=== PATIENT | male | born 1945 | race Caucasian/White ===

== ENCOUNTER 2017-08-20 12:40 | Inpatient (IN) ==
[2017-08-20] MEDS: SALINE FLUSH 10ml SYRINGE IVF PRN (12:55)
--- NOTE | 2017-08-20 13:08 | Emergency Department Report ---
SOB HPI - General Chief Complaint: Shortness of Breath/Dyspnea Stated Complaint: soa Time Seen by Provider: 08/20/17 12:50 Source: patient, RN notes reviewed, old records reviewed Mode of arrival: ambulatory Limitations: no limitations - History of Present Illness 72yo man presents to the ER with dyspnea at rest. Pt has had progressive dyspnea over the last week; today, he noted that he was having dyspnea while reading out loud at [employer]. Pt has no known cardiac hx, but has been diabetic x40+ years. Pt has a h/o HTN (untreated due to syncopal events with concurrent hypoglycemia/hypotension), but no HL. Pt has significant peripheral neuropathy, but no current/former AUTUMN. Pt has had some rhinitis and possibly a recent cold. MD Complaint: shortness of breath Onset (ago): day(s) (7) Context: recent illness Severity: severe Consistency/Duration: constant Relieving factors: oxygen Exacerbating factors: lying flat, exertion, movement Known history of: diabetes Treatment prior to arrival: none - Related Data Home Medications Medication Instructions Recorded Confirmed Aspirin [Ecotrin] 81 mg PO DAILY 08/20/17 08/20/17 Cyanocobalamin (Vitamin B-12) 1 tab PO DAILY 08/20/17 08/20/17 [Vitamin B-12] Ergocalciferol (Vitamin D2) 1 cap PO WEEKLY 08/20/17 08/20/17 [Vitamin D2] Finasteride [Proscar] 5 mg PO DAILY 08/20/17 08/20/17 Insulin Lispro [Humalog] 1 dose SQ DAILY 08/20/17 08/20/17 Allergies Allergy/AdvReac Type Severity Reaction Status Date / Time No Known Allergies Allergy Verified 08/20/17 13:12 Review of Systems All systems: reviewed and negative except as stated Cardiovascular: Reports: as per HPI, dyspnea on exertion. Denies: chest pain, palpitations, orthopnea, edema, syncope, paroxysmal nocturnal dyspnea Respiratory: Reports: as per HPI, dyspnea. Denies: cough, wheezes, hemoptysis, stridor [facility] Patient Stated Medical History Cataracts Yes Hearing Loss Yes Other Cardiology Yes: "AUTONOMIC NEUROPATHY" Diabetes Mellitus Type 1 Yes Hx Benign Prostatic Yes Hyperplasia Other Musculoskeletal Yes: NEURAL STIMULATOR Medical History Updates: HTN. DM. Peripheral neuropathy - Social History Smoking status: Unknown if ever smoked Physical Exam - Limitations Limitations: no limitations - General General appearance: alert, in no apparent distress, obese (Morbid) - Normal Exams: Head:: Normocephalic without trauma Eyes:: Pupils are PERRLA w/ EOMI, No scleral icterus, irritation, or foreign bodies noted ENMT:: No facial trauma, nasal exudates, pharyngeal erythema, or exudates are noted Neck:: Full range of motion, without adenopathy Lymphatic:: No lymphadenopathy Musculoskeletal:: No tenderness, or deformity noted Neurological:: Patient is alert, and oriented Psychiatric:: Patient exhibits, appropriate attention - Chest Chest inspection: Present: normal inspection, symmetric chest wall rise. Absent : tenderness, rash - Respiratory Respiratory exam: Present: normal lung sounds bilaterally. Absent: respiratory distress, wheezes, stridor, prolonged expiratory phase, crackles - Cardiovascular Cardiovascular exam: Present: regular rate, normal rhythm, normal heart sounds. Absent: rubs, gallop, clicks - Abdominal Exam Abdominal exam: Present: soft, distention, normal bowel sounds, pulsatile mass. Absent: tenderness, guarding, rebound, rigidity - Skin Skin exam: Present: warm, dry. Absent: intact (Eschar and healing wounds over b /l shins), rash Course - Consultations Consultation #1: Dr. Dumont: Since pt is new-onset CHF, would like to have pt placed in hospital overnight for planned echo in the AM. Time: 14:37 Vital Signs Temperature 98.1 F 08/20/17 12:43 Pulse Rate 45 L 08/20/17 12:43 Respiratory Rate 24 08/20/17 12:43 Blood Pressure 183/79 H 08/20/17 12:43 Pulse Oximetry 96 08/20/17 12:43 Temperature 98.1 F 08/20/17 12:43 Pulse Rate 45 L 08/20/17 12:43 Respiratory Rate 24 08/20/17 12:43 Blood Pressure 183/79 H 08/20/17 12:43 Pulse Oximetry 96 08/20/17 13:51 Shortness of Breath/Dyspnea - MDM Narrative Medical decision making narrative: Pt with new-onset CHF, based on presenting hx, elevated BNP, and h/p DM x40yrs. D-dimer not elevated, by Wells criteria; no other s/s concerning for PE. No evidence of PNA, PTX, or other concerning findings today. Discussed case with goodwill ambassador, who recommends obs and continued w/up in the AM. - Differential Diagnosis Likely: acute exacerbation of chronic obstructive airways disease, congestive heart failure, community acquired pneumonia, pulmonary embolism - Medical Records Attestation: I reviewed the patient's medical records. - Lab Data Attestation: I reviewed the patient's lab results. Result diagrams: 08/20/17 12:56 08/20/17 12:56 Lab Results 08/20/17 08/20/17 08/20/17 Range/Units 12:56 12:56 12:56 WBC 6.1 (4.5-11.0) T/MM3 RBC 4.16 L (4.50-5.90) M/MM3 Hgb 13.4 L (13.5-17.5) GM/DL Hct 39.4 L (41-53) % MCV 94.7 (80-100) UM3 MCH 32.2 (26-34) UUG MCHC 34.0 (31-37) GM/DL RDW Std Deviation 40.6 (36.9-50.2) FL Plt Count 156 (130-400) T/MM3 MPV 10.4 (9.4-12.4) UM3 Immature Gran % (Auto) 0.0 (0.0-0.5) % Neut % (Auto) 67.4 H (33-66) % Lymph % (Auto) 16.3 L (23-45) % [place] % (Auto) 14.7 H (0-9.0) % Eos % (Auto) 1.3 (0-4) % Baso % (Auto) 0.3 (0-2) % Neut # (Auto) 4.1 (1.8-7.7) T/MM3 Lymph # (Auto) 1.0 (1-4.8) T/MM3 [place] # (Auto) 0.9 H (0-0.8) T/MM3 Eos # (Auto) 0.1 (0-0.5) T/MM3 Baso # (Auto) 0.0 (0-0.2) T/MM3 Abs Immat Gran (auto) 0.00 (0.00-0.03) T/MM3 D-Dimer 347 H (0-230) NG/ML Turbidity < 20 (0-20) Sodium 144 (134-144) MEQ/L Potassium 4.1 (3.6-5) MEQ/L Chloride 111 H (98-107) MEQ/L Carbon Dioxide 23 (22-30) MEQ/L Anion Gap 10 (5-15) meq/L BUN 40.0 H (9-20) MG/DL Creatinine 1.9 H (0.8-1.5) mg/dL GFR Calculation 35 BUN/Creatinine Ratio 21 (6-26) RATIO Glucose 123 H (75-110) MG/DL Calculated Osmolality 288 H (261-280) MOSM/KG Calcium 9.1 (8.4-10.2) MG/DL Icterus Index < 2 (0-7) Troponin I 0.023 (0-0.12) ng/ml NT-Pro-B Natriuret Pep 3490 H (0-175) pg/mL Plasma Lactate 1.1 (0.6-2.2) MMOL/L Specimen Hemolysis < 15 (0-25) - Radiology Data Attestation: I reviewed the patient's radiology results. - EKG Data EKG #1 EKG attestation: Yes: I reviewed and interpreted this EKG. EKG shows normal: sinus rhythm, axis, intervals, QRS complexes Rate: bradycardia Heart block present: 1st Degree Interpretation: nonspecific ST-T wave changes Disposition Clinical Impression: Congestive heart failure Qualifiers: Heart failure type: unspecified Heart failure chronicity: acute Qualified Code( s): I50.9 - Heart failure, unspecified Disposition: [place] [facility] [place] Language: Thai Condition: Improved Prescriptions: No Action Insulin Lispro [Humalog] 1 dose SQ DAILY Aspirin [Ecotrin] 81 mg PO DAILY Finasteride [Proscar] 5 mg PO DAILY Ergocalciferol (Vitamin D2) [Vitamin D2] 1 cap PO WEEKLY Cyanocobalamin (Vitamin B-12) [Vitamin B-12] 1 tab PO DAILY Referrals: Philippe Camacho MD [Primary Care Provider] - Time of Disposition: 15:28 - Seen By: physician
--- OUTSIDE RECORDS SUMMARY | 2017-08-20 13:12 | External Medical Summary | Summary of Care ---
:1945 Author Name Pedro Graham M.A., James A Address [address], [place] [id number] Care Team Providers Name Role Phone Elgin Lucero M.D. Unavailable Unavailable Pedro Graham M.A., James A Unavailable Unavailable Yoni Moore M.D. Unavailable Unavailable Yoni Moore Unavailable Unavailable Unavailable Unavailable Unavailable Functional Status Functional Status Health Issues Name Dates Details Functional status health issues are not documented Status: Cognitive Status Health Issues Name Dates Details Cognitive status health issues are not documented Status: Problems Name Dates Details Fainting (780.2, R55) Status: Active Stenosis, cervical spine (723.0, M48.02) Status: Active Carpal tunnel syndrome (354.0, G56.00) Status: Active Elevated prostate specific antigen (PSA) (790.93, R97.20) Status: Active Presbyopia (367.4, H52.4) Status: Active Syncope (780.2, R55) Status: Active Anemia (285.9, D64.9) Status: Active Leukocytosis (leucocytosis) (288.60, D72.829) Status: Active Upset stomach (536.8, K30) Status: Active Shoulder pain (719.41, M25.519) Status: Active Wrist pain (719.43, M25.539) Status: Active Hoarseness (784.42, R49.0) Status: Active Rotator cuff tendonitis (726.10, M75.80) Status: Active Closed fracture of distal end of radius (813.42, S52.509A) Status: Active Bilateral leg pain (729.5, M79.604) Status: Active Lower back pain (724.2, M54.5) Status: Active Benign prostatic hypertrophy (600.00, N40.0) Status: Active 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0) Status: Active Small bowel obstruction (560.9, K56.69) Status: Active Hospital discharge follow-up (V67.59, Z09) Status: Active Hyponatremia (276.1, E87.1) Status: Active Benign essential hypertension (401.1, I10) Status: Active Diabetes (250.00, E11.9) Status: Active Hypercholesterolemia (272.0, E78.00) Status: Active Hypertension (401.9, I10) Status: Active 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 Quantity: 30 Refills: 0 Yoni Mooer M.D. 12-Sep-2007 Active SulfaSALAzine 500 MG Oral Tablet Delayed Release Take 1 tablet daily Quantity: 90 Refills: 0 Yoni Moore M.D. 12-Sep-2007 Active Vitamin D 61880 UNIT CAPS TAKE 1 TABLET PO Q MONTHLY Quantity: 12 Refills: 0 Yoni Moore M.D. 12-Sep-2007 Active Morphine Sulfate 10 MG/ML Injection Solution administer 5 mg IM now Quantity: 1 Refills: 0 Elgin Lucero M.D. 19-Jun-2014 Admin Requested Finasteride 5 MG Oral Tablet TAKE 1 TABLET DAILY. Refills: 0 Yoni Moore M.D. Start Active Vitamin B-12 1000 MCG Oral Tablet Take 1 tablet daily Refills: 0 Yoni Moore M.D. Start 12-Feb-2016 Active Allergies and Adverse Reactions Name Dates Details Augmentin TABS (Adverse Event) Reaction: Dyspepsia Status: Active Darvocet-N 100 TABS (Allergy) Reaction: Hallucinations (Severe) Status: Active Past Medical History Name Dates Details History of Posterior capsular opacification, obscuring vision (366.53, H26.499 ) Status: Resolved Procedures Procedure Dates Details History of Extracaps Cataract Extract With Prosthesis Insert Left Eye History of Discission Of Secondary Membranous Cataract By Laser History of Extracaps Cataract Extract With Prosthesis Insert Right Eye History of Destruction Of Localized Retinal Lesion By Laser History of Implantation Of Intraspinal Neurostimulator Percutaneous History of Tonsillectomy History of Appendectomy History of Cataract Surgery Procedures not documented Immunization Name Dates Details Pneumo (Pneumovax) on: 27-Jan-2010 Lot #: [id number] Prevnar 13 Intramuscular Suspension on: Lot #: [id number] Fluzone High-Dose 0.5 ML Intramuscular Suspension Prefilled Syringe on: Lot #: [id number] Family History Unknown Family Member Name Dates Details Family history of hypertension (V17.49, Z82.49) Comments: Family History Status: Active Family history of sleep apnea (V19.8, Z82.0) Comments: Family History Status: Active Family history of diabetes mellitus (V18.0, Z83.3) Comments: Family History Status: Active Social History Name Dates Details - Status: Smoking Status Name Dates Details Former smoker Vital Signs Date Test Result Details 16-Aug-2016 08:00 BP Systolic 136 mm[Hg] Status: Comments: Location: ; Position: BP Diastolic 80 mm[Hg] Status: Comments: Location: ; Position: Temperature 36.2 c Status: Comments: Method: Heart Rate 81 /min Status: Comments: Location: ; Height 73 in Status: Weight 204 lb Status: Physical Findings 90 Status: Comments: O2 Saturation Body Mass Index Calculated 26.91 kg/m2 Status: Body Surface Area Calculated 2.17 m2 Status: Results Date Description Value Details 16-Aug-2016 07:57 CBC w/ Auto Diff 7150 Comments: Fastin hours WBC 4.1 K/uL (Below low threshold) Range: 4.5-11.0 RBC 4.44 mil/uL Range: 4.20-5.40 HGB 14.7 g/dL Range: 14.0-18.0 HCT 44.6 % Range: 42.0-53.0 MCV 100.3 fL (Above high threshold) Range: 80.0-99.0 MCH 33.1 pg (Above high threshold) Range: 27.3-32.5 MCHC 33.0 % Range: 32.0-36.0 RDW 13.9 % Range: 11.6-14.8 PLATELETS 193 K/uL Range: 150-400 MPV 7.8 fL Range: 6.0-11.0 %NEUTRO 56.4 % Range: 37.0-80.0 %LYMPHS 26.6 % Range: 13.0-50.0 %MONO 10.7 % Range: 0.0-12.0 %EOS 1.5 % Range: 0.0-7.0 %BASO 0.5 % Range: 0.0-2.5 %MARIZA 4.3 % Range: 0.0-5.0 NEUTRO 2.3 K/uL Range: 2.0-6.9 LYMPHS 1.1 K/uL Range: 0.6-3.4 MONOS 0.4 K/uL Range: 0.0-0.9 EOS 0.1 K/uL Range: 0.0-0.7 BASO 0.0 K/uL Range: 0.0-0.2 08:30 ALBUMIN CREAT PANEL 1108 Comments: Fastin hours MICROALBUMIN, URINE 186.5 mg/L (Above high Range: <20.1 threshold) Comments: Verified by Repeat Analysis----- URINE CREATININE 113.0 mg/dL Range: 30.0-125.0 URINE ALBUMIN:CREAT RATIO 165.1 ug/mg (Above high Range: 0.0-30.0 threshold) 08:30 LIPID PROFILE 1184 Comments: Fastin hours CHOLESTEROL 156 mg/dL Range: <200 TRIGLYCERIDES 103 mg/dL Range: 30-200 HDL Cholesterol 50 mg/dL Range: >39 NON HDL CHOLESTEROL 106 CARDIAC RSK FACTOR 3.1 units (Below low threshold) Range: 4.4-5.0 LDL - CALCULATED 85 mg/dL Range: 0-130 08:30 AST 1180 Comments: Fastin hours AST 21 U/L Range: 8-35 08:30 BASIC METABOLIC PROFILE 1210 Comments: Fastin hours SODIUM 142 mmol/L Range: 133-144 POTASSIUM 4.6 mmol/L Range: 3.5-5.1 CHLORIDE 107 mmol/L Range: 98-110 CARBON DIOXIDE 26.9 mmol/L Range: 23.0-33.0 ANION GAP 8 mmol/L Range: 6-16 BUN 30 mg/dL (Above high Range: 7-18 threshold) CREATININE, SERUM 1.64 mg/dL (Above high Range: 0.70-1.30 threshold) EST GFR, 50 ml/min (Below low Range: >60 threshold) EST GFR, NON-AFR [place] 41 ml/min (Below low Range: >60 threshold) Comments: EST GFR is reported in ml/min per 1.73 m2 of body surface area. ----- BUN:CREATININE RATIO 18 GLUCOSE 117 mg/dL (Above high Range: 70-100 threshold) Comments: Variance from previous testing noted.----- CALCIUM 8.9 mg/dL Range: 8.5-10.1 08:33 HEMOGLOBIN A1C 3507 Comments: Fastin hours Hemoglobin A1C 7.3 % ESTIMATED AVG. GLUCOSE 163 Plan of Care Name Dates Details Planned Observations Planned Goals not documented Planned Encounters Appointment; Provider: Sher Diez M.D. On 16-Jan-2017 08:15 Appointment; Provider: Yoni Moore M.D. On 16-Nov-2016 08:00 Instructions Name Dates Details Instructions not documented Encounters Appointment; Sid Frances M.D. On 08-Sep-2016 Encounter Diagnosis: Problem not documented 09:45 Appointment; Yoni Moore M.D. On 16-Aug-2016 Encounter Diagnosis: Problem not documented 08:00 Appointment; Yoni Moore M.D. On 11-Jul-2016 Encounter Diagnosis: Problem not documented 15:30 Appointment; Sher Diez M.D. On 11-Jul-2016 Encounter Diagnosis: Problem not documented 08:15 Appointment; Alfonso Diane D.O. On 26-May-2016 Encounter Diagnosis: Problem not documented 08:10 Appointment; Yoni Moore M.D. On 16-May-2016 Encounter Diagnosis: Problem not documented 08:30 Appointment; Alfonso Diane D.O. On 02-Mar-2016 Encounter Diagnosis: Problem not documented 09:20 Appointment; Yoni Moore M.D. On 12-Feb-2016 Encounter Diagnosis: Problem not documented 08:30 Appointment; Sher Diez M.D. On 11-Jan-2016 Encounter Diagnosis: Problem not documented 08:15 Appointment; Krista Ferrell, TIFFANIE|LD|C.D.ENeto On 23-Dec-2015 Encounter Diagnosis: Problem not documented 14:00 Appointment; Sher Diez M.D. On 17-Nov-2015 Encounter Diagnosis: Problem not documented 08:15 Appointment; Yoni Moore M.D. On Encounter Diagnosis: Problem not documented 09:15 Appointment; Bob Arteaga M.D.,[facility], On 12-Aug-2015 Encounter Diagnosis: Problem not documented 08:15 Appointment; Yoni Moore M.D. On 04-Aug-2015 Encounter Diagnosis: Problem not documented 08:45 Appointment; Sher Diez M.D. On 06-Jul-2015 Encounter Diagnosis: Problem not documented 08:15 Appointment; Carlyn Crespo RD|LD|C.D.ENeto On 06-May-2015 Encounter Diagnosis: Problem not documented 13:00 Appointment; Alfonso Diane D.O. On 09-Mar-2015 Encounter Diagnosis: Problem not documented 14:00 Appointment; Sher Diez M.D. On 16-Feb-2015 Encounter Diagnosis: Problem not documented 08:15 Appointment; Sher Diez M.D. On Encounter Diagnosis: Problem not documented 08:15 Appointment; Alfonso Diane D.O. On Encounter Diagnosis: Problem not documented 09:15 Appointment; Yoni Moore M.D. On Encounter Diagnosis: Problem not documented 09:00 Appointment; Sher Diez M.D. On Encounter Diagnosis: Problem not documented 08:15"
--- OUTSIDE RECORDS SUMMARY | 2017-08-20 13:13 | External Medical Summary | Summary of Care ---
:1945 Author Name Jenni Mcdonough, NELIDA, ,Bob Address [address], [place] [id number] Care Team Providers Name Role Phone Jazmine Mcdonough, Elgin Powell Unavailable Unavailable Yoni Moore M.D. Unavailable Unavailable Yoni Moore Primary Care Provider Unavailable Unavailable Unavailable Unavailable Functional Status Functional Status Health Issues Name Dates Details Functional status health issues are not documented Status: Cognitive Status Health Issues Name Dates Details Cognitive status health issues are not documented Status: Problems Name Dates Details Localized Soft Tissue Swelling Left (Lower) Leg Status: Active Fainting (780.2, R55) Status: Active Stenosis, cervical spine (723.0, M48.02) Status: Active Carpal tunnel syndrome (354.0, G56.00) Status: Active Elevated prostate specific antigen (PSA) (790.93, R97.2) Status: Active 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, 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 Presbyopia (367.4, H52.4) Status: Active Pseudophakia (V43.1, Z96.1) Status: Active Epidermal inclusion cyst (706.2, L72.0) Status: Active Syncope (780.2, R55) Status: Active Anemia (285.9, D64.9) Status: Active Leukocytosis (leucocytosis) (288.60, D72.829) Status: Active Autonomic dysfunction (337.9, G90.9) Status: Active Upset stomach (536.8, K30) Status: Active Hypotension (458.9, I95.9) Status: Active Fall (E888.9, W19.XXXA) Status: Active Shoulder pain (719.41, M25.519) Status: Active Wrist pain (719.43, M25.539) Status: Active Hoarseness (784.42, R49.0) Status: Active Rotator cuff tendonitis (726.10, M75.80) Status: Active Closed fracture of distal end of radius (813.42, S52.509A) Status: Active Bilateral leg pain (729.5, M79.604) Status: Active URI, acute (465.9, J06.9) Status: Active Lower back pain (724.2, M54.5) Status: Active Bronchitis, acute (466.0, J20.9) Status: Active Wheezing (786.07, R06.2) Status: Active Cellulitis of right leg without foot (682.6, L03.115) Status: Active Ulcer of right leg (707.10, L97.919) Status: Active COAG (chronic open-angle glaucoma), Moderate stage (365.11, H40.11X2) Status : Active Benign essential hypertension (401.1, I10) Status: Active Hypercholesterolemia (272.0, E78.0) Status: Active Hypertension (401.9, I10) Status: Active Peripheral neuropathy (356.9, G62.9) Status: Active Diabetes (250.00, E11.9) Status: Active Benign prostatic hypertrophy (600.00, N40.0) Status: Active 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 Quantity: 30 Refills: 0 Yoni Moore M.D. Started 12-Sep-2007 ActiveAspirin 81 MG TABS TAKE 1 TABLET DAILY. Quantity: 30 Refills: 0 Yoni Moore M.D. Started 12-Sep-2007 ActiveSulfaSALAzine 500 MG Oral Tablet Delayed Release Take 1 tablet daily Quantity: 90 Refills: 0 Yoni Moore M.D. Started 12-Sep-2007 ActiveVitamin D 27976 UNIT CAPS TAKE 1 TABLET PO Q MONTHLY Quantity: 12 Refills: 0 Yoni Moore M.D. Started 12-Sep-2007 ActiveHumaLOG 100 UNIT/ML Subcutaneous Solution Cartridge Refills: 0 Started 31-Jan-2014 ActiveIbuprofen 200 MG Oral Capsule Refills: 0 Started 03-Mar-2014 ActiveVitamin D3 02401 UNIT Oral Capsule Refills: 0 Started 03-Mar-2014 ActiveMorphine Sulfate 10 MG/ML Injection Solution administer 5 mg IM now Quantity: 1 Refills: 0 Elgin Lucero M.D. Started 19-Jun-2014 Admin Requested Allergies and Adverse Reactions Name Dates Details Augmentin TABS Reaction: Dyspepsia Status: Active Darvocet-N 100 TABS Reaction: Hallucinations (Severe) Status: Active Past Medical [...] History of Implantation Of Intraspinal Neurostimulator Percutaneous AST 1180 Ordered:03-Aug-2015 BASIC METABOLIC PROFILE 1210 Ordered:03-Aug-2015 CBC w/ Auto Diff 7150 Ordered:03-Aug-2015 HEMOGLOBIN A1C 3507 Ordered:03-Aug-2015 LIPID PROFILE 1184 Ordered:03-Aug-2015 Immunization Name Dates Details Pneumo (Pneumovax) Administered on:27-Jan-2010 Lot #: [id number] Social History Name Dates Details Smoking StatusFormer smoker Vital Signs Date Test Result Details 04-Aug-2015 08:38 BP Systolic 144 mm[Hg] Status: BP Diastolic 84 mm[Hg] Status: Temperature 36 c Status: Heart Rate 85 /min Status: Weight 216 lb Status: O2 SAT 91 % Status: Body Mass Index Calculated 28.5 kg/m2 Status: Body Surface Area Calculated 2.22 m2 Status: Results Date Description Value Details 06-Aug-2015 10:10 PSA ( PROSTATE SPECIFIC ANTIGEN) 3100 PROSTATE SPECIFIC ANTIGEN 3.440 ng/mL (Better) Range: 0.000-4.000 Plan of Care Planned Observations Name Dates Details Planned Goals not documented Goal Planned Encounters Appointment; Provider: Bob Arteaga On 12-Aug-2016 08:15 Appointment; Provider: Sher Diez On 11-Jan-2016 08:15 Appointment; Provider: Sher Diez On 17-Nov-2015 08:15 Appointment; Provider: Yoni Moore On 09:15 Appointment; Provider: Sher Diez On 19-May-2010 15:15 Appointment; Provider: Krista eFrrell On 02-May-2008 18:00 Instructions Instructions not documented Encounters Appointment; Bob Arteaga On 12-Aug-2015 Encounter Diagnosis: Problem not documented 08:15 Appointment; Yoni Moore On 04-Aug-2015 Encounter Diagnosis: Problem not documented 08:45 Appointment; Sher Diez On 06-Jul-2015 Encounter Diagnosis: Problem not documented 08:15 Appointment; Carlyn Crespo On 06-May-2015 Encounter Diagnosis: Problem not documented 13:00 Appointment; Alfonso Diane On 09-Mar-2015 Encounter Diagnosis: Problem not documented 14:00 Appointment; Sher Diez On 16-Feb-2015 Encounter Diagnosis: Problem not documented 08:15 Appointment; Sher Diez On Encounter Diagnosis: Problem not documented 08:15 Appointment; Alfonso Diane On Encounter Diagnosis: Problem not documented 09:15 Appointment; Yoni Moore On Encounter Diagnosis: Problem not documented 09:00 Appointment; Sher Diez On Encounter Diagnosis: Problem not documented 08:15 Appointment; Bob Arteaga On 30-Jul-2014 Encounter Diagnosis: Problem not documented 08:45 Appointment; Lopez Najera On 03-Jul-2014 Encounter Diagnosis: Problem not documented 13:00 Appointment; Yoni Moore On 01-Jul-2014 Encounter Diagnosis: Problem not documented 14:00 Appointment; Elgin Lucero On 19-Jun-2014 Encounter Diagnosis: Problem not documented 14:35 Appointment; Sofya Bar On 16-Jun-2014 Encounter Diagnosis: Problem not documented 09:15 Appointment; Sher Diez On 02-Jun-2014 Encounter Diagnosis: Problem not documented 08:15 Appointment; Anupam Perez On 21-May-2014 Encounter Diagnosis: Problem not documented 08:30 Appointment; Anupam Perez On 07-May-2014 Encounter Diagnosis: Problem not documented 08:30 Appointment; Anupam Perze On 23-Apr-2014 Encounter Diagnosis: Problem not documented 08:30 Appointment; Yoni Moore On 21-Apr-2014 Encounter Diagnosis: Problem not documented 14:00 Appointment; Alfonso Diane On 03-Apr-2014 Encounter Diagnosis: Problem not documented 15:30 Appointment; Lopez Najera On 03-Mar-2014 Encounter Diagnosis: Problem not documented 10:45 Appointment; Sher Diez On 31-Jan-2014 Encounter Diagnosis: Problem not documented 10:30 Appointment; Yoni Moore On 30-Dec-2013 Encounter Diagnosis: Problem not documented 14:15 Appointment; Yoni Moore On 20-Dec-2013 Encounter Diagnosis: Problem not documented 13:15 Appointment; Yoni Moore On 26-Nov-2013 Encounter Diagnosis: Problem not documented 14:30 Appointment; Sher Diez On Encounter Diagnosis: Problem not documented 08:15 Appointment; Lopez Najera On Encounter Diagnosis: Problem not documented 13:15 Appointment; Lopez Najera On Encounter Diagnosis: Problem not documented 11:30 Appointment; Yoni Moore On Encounter Diagnosis: Problem not documented 15:15 Appointment; Yoni Moore On Encounter Diagnosis: Problem not documented 11:00 Appointment; Alfonso Diane On Encounter Diagnosis: Problem not documented 16:30 Appointment; Sher Diez On Encounter Diagnosis: Problem not documented 08:15 Appointment; Lopez Najera On 22-Aug-2013 Encounter Diagnosis: Problem not documented 08:30 Appointment; Jn Heck On 21-Aug-2013 Encounter Diagnosis: Problem not documented 09:00
--- OUTSIDE RECORDS SUMMARY | 2017-08-20 13:13 | External Medical Summary | Summary of Care ---
:1945 Author Name Jenni Mcdonough, NELIDA, ,Bob Address [address], [place] [id number] Care Team Providers Name Role Phone Jazmine Mcdonough, Elgin Powell Unavailable Unavailable Yoin Moore M.D. Unavailable Unavailable Yoni Moore Primary [...] Benign prostatic hypertrophy (600.00, N40.0) Status: Active Bronchitis, acute (466.0, J20.9) Status: [...] Status: Active Diabetes (250.00, E11.9) Status: Active Medications Name Dates Details Ibuprofen 200 MG Oral Capsule Refills: 0 Started 03-Mar-2014 ActiveVitamin D3 27603 UNIT Oral Capsule Refills: 0 Started 03-Mar-2014 ActiveHumaLOG 100 UNIT/ML Subcutaneous Solution Cartridge Refills: 0 Started 31-Jan-2014 ActiveVitamin D 75410 UNIT CAPS TAKE 1 TABLET PO Q MONTHLY Quantity: 12 Refills: 0 Yoni Moore M.D. Started 12-Sep-2007 ActiveSulfaSALAzine 500 MG Oral Tablet Delayed Release Take 1 tablet daily Quantity: 90 Refills: 0 Yoni Moore M.D. Started 12-Sep-2007 ActiveAspirin 81 MG TABS TAKE 1 TABLET DAILY. Quantity: 30 Refills: 0 Yoni Moore M.D. Started 12-Sep-2007 ActiveSimvastatin 20 MG Oral Tablet TAKE 1 TABLET DAILY AT BEDTIME. Quantity: 30 Refills: 0 Yoni Moore M.D. Started 12-Sep-2007 ActiveMorphine Sulfate 10 MG/ML Injection Solution administer [...] History of Implantation Of Intraspinal Neurostimulator Percutaneous PSA ( PROSTATE SPECIFIC ANTIGEN) 3100 Ordered:30-Jul-2015 AST 1180 Ordered:03-Aug-2015 BASIC METABOLIC PROFILE 1210 [...] m2 Status: Results Date Description Value Details Results not documented Plan of Care Planned Observations Name Dates Details Planned Goals not documented Goal Planned Encounters Appointment; Provider: Sher Diez On 11-Jan-2016 08:15 Appointment; Provider: Sher Diez On 17-Nov-2015 08:15 Appointment; Provider: Yoni Moore On 09:15 Appointment; Provider: Bob Arteaga On 12-Aug-2015 08:15 Appointment; Provider: Sher Diez On 19-May-2010 15:15 Appointment; Provider: Krista Ferrell On 02-May-2008 18:00 Instructions Instructions not documented Encounters Appointment; Yoni Moore On 04-Aug-2015 Encounter Diagnosis: [...] not documented 08:30 Appointment; Anupam Perez On 23-Apr-2014 Encounter Diagnosis: Problem not documented [...]
--- OUTSIDE RECORDS SUMMARY | 2017-08-20 13:13 | External Medical Summary | Summary of Care ---
:1945 Author Name Yoni Moore M.D. 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 Quantity: 30 Refills: 0 Yoni Moore M.D. Start 12-Sep-2007 Active SulfaSALAzine 500 MG Oral Tablet Delayed Release Take 1 tablet daily Quantity: 90 Refills: 0 Yoni Moore M.D. 12-Sep-2007 Active Vitamin D 60513 UNIT CAPS TAKE 1 TABLET PO Q MONTHLY Quantity: 12 Refills: 0 Yoni Moore M.D. Start 12-Sep-2007 Active HumaLOG 100 UNIT/ML Subcutaneous Solution Cartridge Refills: 0 Start 31-Jan-2014 Active Ibuprofen 200 MG Oral Capsule Refills: 0 Start 03-Mar-2014 Active Morphine Sulfate 10 MG/ML Injection Solution administer 5 mg IM now Quantity: 1 Refills: 0 Elgin Lucero M.D. Start 19-Jun-2014 Admin Requested Finasteride 5 MG Oral [...] History of Implantation Of Intraspinal Neurostimulator Percutaneous HEMOGLOBIN A1C 3507 Ordered: 02-Feb-2016 THYROID STIM. HORMONE 3602 Ordered: 02-Feb-2016 Immunization Name Dates Details Pneumo (Pneumovax) on: 27-Jan-2010 Lot #: [id number] Prevnar 13 Intramuscular Suspension on: Lot #: [id number] Social History Name Dates Details - Status: Smoking Status Name Dates Details Former smoker Vital Signs Date Test Result Details 12-Feb-2016 08:29 BP Systolic 142 mm[Hg] Status: Comments: Location: ; Position: BP Diastolic 76 mm[Hg] Status: Comments: Location: ; Position: Temperature 35.6 c Status: Comments: Method: Heart Rate 94 /min Status: Comments: Location: ; Weight 210 lb Status: Physical Findings 97 Status: Comments: O2 Saturation Body Mass Index Calculated 27.71 kg/m2 Status: Body Surface Area Calculated 2.2 m2 Status: Results Date Description Value Details 12-Feb-2016 07:50 CBC w/ Auto Diff 7150 Comments: Fastin hours WBC 3.5 K/uL (Below low threshold) Range: 4.5-11.0 RBC 4.51 mil/uL Range: 4.20-5.40 HGB 15.0 g/dL Range: 14.0-18.0 HCT 43.9 % Range: 42.0-53.0 MCV 97.3 fL Range: 80.0-99.0 MCH 33.2 pg (Above high threshold) Range: 27.3-32.5 MCHC 34.1 % Range: 32.0-36.0 RDW 12.9 % Range: 11.6-14.8 PLATELETS 178 K/uL Range: 150-400 MPV 7.8 fL Range: 6.0-11.0 %NEUTRO 51.7 % Range: 37.0-80.0 %LYMPHS 30.8 % Range: 13.0-50.0 %MONO 11.0 % Range: 0.0-12.0 %EOS 2.6 % Range: 0.0-7.0 %BASO 0.6 % Range: 0.0-2.5 %MARIZA 3.3 % Range: 0.0-5.0 NEUTRO 1.8 K/uL (Below low threshold) Range: 2.0-6.9 LYMPHS 1.1 K/uL Range: 0.6-3.4 MONOS 0.4 K/uL Range: 0.0-0.9 EOS 0.1 K/uL Range: 0.0-0.7 BASO 0.0 K/uL Range: 0.0-0.2 08:04 AST 1180 Comments: Fastin hours AST 29 U/L Range: 8-35 08:04 BASIC METABOLIC PROFILE 1210 Comments: Fastin hours SODIUM 136 mmol/L Range: 133-144 POTASSIUM 4.4 mmol/L Range: 3.5-5.1 CHLORIDE 105 mmol/L Range: 98-110 CARBON DIOXIDE 26.0 mmol/L Range: 23.0-33.0 ANION GAP 5 mmol/L (Below low Range: 6-16 threshold) BUN 27 mg/dL (Above high Range: 7-18 threshold) CREATININE, SERUM 1.78 mg/dL (Above high Range: 0.70-1.30 threshold) EST GFR, 46 ml/min (Below low Range: >60 threshold) EST GFR, NON-AFR IRANIAN 38 ml/min (Below low Range: >60 threshold) Comments: EST GFR is reported in ml/min per 1.73 m2 of body surface area. ----- BUN:CREATININE RATIO 15 GLUCOSE 182 mg/dL (Above high Range: 70-100 threshold) CALCIUM 8.9 mg/dL Range: 8.5-10.1 08:04 LIPID PROFILE 1184 Comments: Fastin hours CHOLESTEROL 161 mg/dL Range: <200 TRIGLYCERIDES 103 mg/dL Range: 30-200 HDL Cholesterol 54 mg/dL Range: >39 NON HDL CHOLESTEROL 107 CARDIAC RSK FACTOR 3.0 units (Below low threshold) Range: 4.4-5.0 LDL - CALCULATED 86 mg/dL Range: 0-130 Plan of Care Name Dates Details Planned Observations Planned Goals not documented Planned Encounters Appointment; Provider: Bob Arteaga M.D.|NELIDA Brenner|NELIDA Mcdonough, On 12-Aug-2016 08:15 Appointment; Provider: Sher Diez M.D. On 11-Jul-2016 08:15 Interventions Provided Labs/Procedures/ImagingDiabetic Foot - Pulse Exam; Done:Diabetic Foot - Sensory Exam; Done:Diabetic Foot - Visual Exam; Done: Instructions Name Dates Details Instructions not documented Encounters Appointment; Sher Diez M.D. On 11-Jan-2016 Encounter Diagnosis: Problem not documented 08:15 Appointment; Krista Ferrell RD|LD|C.D.ENeto On 23-Dec-2015 Encounter Diagnosis: Problem not documented 14:00 Appointment; Sher Diez M.D. On 17-Nov-2015 Encounter Diagnosis: Problem not documented 08:15 Appointment; Yoni Moore M.D. On Encounter Diagnosis: Problem not documented 09:15 Appointment; Bob Arteaga M.D.|Jordin,NELIDA|NELIDA Mcdonough, On 2015 Encounter Diagnosis: Problem not documented 08:15 Appointment; [...] Diagnosis: Problem not documented 08:15 Appointment; Bob rAteaga M.D.|Mali|Sharonda,NELIDA|Sharonda,NELIDA, On 2014 Encounter Diagnosis: Problem not documented 08:45 Appointment; Lopez Najera M.D. On 03-Jul-2014 Encounter Diagnosis: Problem not documented 13:00 Appointment; Yoni Moore M.D. On 01-Jul-2014 Encounter Diagnosis: Problem not documented 14:00 Appointment; Elgin Lucero M.D. On 19-Jun-2014 Encounter Diagnosis: Problem not documented 14:35 Appointment; Sofya Bar M.D. On 16-Jun-2014 Encounter Diagnosis: Problem not documented 09:15 Appointment; Sher Diez M.D. On 02-Jun-2014 Encounter Diagnosis: Problem not documented 08:15 Appointment; Anupam Perez M.D. On 21-May-2014 Encounter Diagnosis: Problem not documented 08:30 Appointment; Anupam Perez M.D. On 07-May-2014 Encounter Diagnosis: Problem not documented 08:30 Appointment; Anupam Perez M.D. On 23-Apr-2014 Encounter Diagnosis: Problem not documented 08:30 Appointment; Yoni Moore M.D. On 21-Apr-2014 Encounter Diagnosis: Problem not documented 14:00 Appointment; Alfonso Diane D.O. On 03-Apr-2014 Encounter Diagnosis: Problem not documented 15:30 Appointment; Lopez Najera M.D. On 03-Mar-2014 Encounter Diagnosis: Problem not documented 10:45"
--- OUTSIDE RECORDS SUMMARY | 2017-08-20 13:13 | External Medical Summary | Summary of Care ---
:1945 Author Name Alfonso Diane D.O. Address [address] [place], [place] [id number] Care Team Providers Name Role Phone Jenni Mcdonough, NELIDA, ,, Bob Estrada Unavailable Unavailable Jazmine Mcdonough, Elgin Powell Unavailable Unavailable Benedicto Bailey, Alfonso Powell Unavailable Unavailable Yoni Moore M.D. 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 Presbyopia (367.4, H52.4) Status: Active Pseudophakia (V43.1, Z96.1) Status: Active Epidermal inclusion cyst (706.2, L72.0) Status: Active Hypertension (401.9, I10) Status: Active Syncope (780.2, R55) Status: Active Anemia (285.9, D64.9) Status: Active Leukocytosis (leucocytosis) (288.60, D72.829) Status: Active Autonomic dysfunction (337.9, G90.9) Status: Active Pre-operative exam (V72.84, Z01.818) Status: Active Upset stomach (536.8, K30) Status: Active Hypercholesterolemia (272.0, E78.0) Status: Active Hypotension (458.9, I95.9) Status: Active Peripheral neuropathy (356.9, G62.9) Status: Active Shoulder pain (719.41, M25.519) Status: Active Wrist pain (719.43, M25.539) Status: Active Hoarseness (784.42, R49.0) Status: Active Fall (E888.9, W19.XXXA) Status: Active Rotator cuff tendonitis (726.10, M75.80) Status: Active Closed fracture of distal end of radius (813.42, S52.509A) Status: Active Bilateral leg pain (729.5, M79.604) Status: Active URI, acute (465.9, J06.9) Status: Active Lower back pain (724.2, M54.5) Status: Active Benign prostatic hypertrophy (600.00, N40.0) Status: Active Sinusitis, acute (461.9, J01.90) Status: Active Diabetes (250.00, E11.9) Status: Active Primary open angle glaucoma (365.11, H40.11X0) Status: Active Bronchitis, acute (466.0, J20.9) Status: Active Wheezing (786.07, R06.2) Status: Active Medications Name Dates Details Simvastatin 20 MG Oral Tablet TAKE 1 TABLET DAILY AT BEDTIME. Quantity: 30 Refills: 0 Yoni Moore M.D. Started 12-Sep-2007 ActiveAspirin 81 MG Oral Tablet TAKE 1 TABLET DAILY. Quantity: 30 Refills: 0 Yoni Moore M.D. Started 12-Sep-2007 ActiveCymbalta 60 MG Oral Capsule Delayed Release Particles TAKE 1 CAPSULE Daily Quantity: 30 Refills: 0 Yoni Moore M.D. Started 12-Sep-2007 ActiveSulfaSALAzine 500 MG Oral Tablet Delayed Release Take 1 tablet daily Quantity: 90 Refills: 0 Yoni Moore M.D. Started 12-Sep-2007 ActiveMidodrine HCl - 2.5 MG Oral Tablet Take 1 tablet daily Quantity: 90 Refills: 0 Yoni Moore M.D. Started 12-Sep-2007 ActiveVitamin D 19728 UNIT CAPS TAKE 1 TABLET PO Q MONTHLY Quantity: 12 Refills: 0 Yoni Moore M.D. Started 12-Sep-2007 ActiveFinasteride 5 MG Oral Tablet TAKE 1 TABLET DAILY DIRECTED. Quantity: 90 Refills: 3 Yoni Moore M.D. Started ActiveTamsulosin HCl - 0.4 MG Oral Capsule TAKE 1 CAPSULE BY MOUTH AT BEDTIME Quantity: 90 Refills: 3 Bob Arteaga M.D., FACS, , Started 21-Mar-2011 ActiveHumaLOG 100 UNIT/ML Subcutaneous Solution Cartridge Refills: 0 Started 31-Jan-2014 ActiveIbuprofen 200 MG Oral Capsule Refills: 0 Started 03-Mar-2014 ActiveVitamin D3 74742 UNIT Oral Capsule Refills: 0 Started 03-Mar-2014 ActiveFluticasone Propionate 50 MCG/ACT Nasal Suspension USE 2 SPRAYS IN EACH NOSTRIL TWICE DAILY. Quantity: 1 Refills: 3 Yoni Moore M.D. Started 21-Apr-2014 [id number] GM Bottle Morphine Sulfate 10 MG/ML Injection Solution administer 5 mg IM now Quantity: 1 Refills: 0 Elgin Lucero M.D. Started 19-Jun-2014 Admin RequestedAsmanex 14 Metered Doses 220 MCG/INH Inhalation Aerosol Powder Breath Activated INHALE 1 PUFF TWICE DAILY. Quantity: 14 Refills: 0 Alfonso Diane D.O. Started ActiveAzithromycin 250 MG Oral Tablet 2 PO today, then 1 PO daily thereafter Quantity: 6 Refills: 0 Alfonso Diane D.O. Started Active Allergies and Adverse Reactions Name Dates [...] History of Implantation Of Intraspinal Neurostimulator Percutaneous Procedures not documented Immunization Name Dates Details Pneumo (Pneumovax) Administered on:27-Jan-2010 Lot #: [id number] Social History Name Dates Details Smoking StatusFormer smoker Vital Signs Date Test Result Details 09:13 Heart Rate 98 /min Status: Temperature 98.2 f Status: O2 SAT 98 % Status: 08:59 BP Systolic 144 mm[Hg] Status: BP Diastolic 80 mm[Hg] Status: Heart Rate 93 /min Status: Temperature 35.8 c Status: Weight 223 lb Status: O2 SAT 98 % Status: Body Mass Index Calculated 29.42 kg/m2 Status: Body Surface Area Calculated 2.25 m2 Status: Results Date Description Value Details Results not documented Plan of Care Planned Observations Name Dates Details Planned Goals not documented Goal Planned Encounters Appointment; Provider: Bob Arteaga On 12-Aug-2015 08:15 Appointment; Provider: Sher Diez On 09-Feb-2015 08:15 Appointment; Provider: Sher Diez On 08:15 Appointment; Provider: Sher Diez On 19-May-2010 15:15 Appointment; Provider: Krista Ferrell On 02-May-2008 18:00 Instructions Instructions not documented Encounters Appointment; Alfonso Diane On Encounter Diagnosis: Problem [...] 21-Aug-2013 Encounter Diagnosis: Problem not documented 09:00 Appointment; Bob Arteaga On 24-Jul-2013 Encounter Diagnosis: Problem not documented 12:15 Appointment; Lopez Najera On 02-Jul-2013 Encounter Diagnosis: Problem not documented 08:15 Appointment; Lopez Najera On 04-Jun-2013 Encounter Diagnosis: Problem not documented 11:30 Appointment; Sher Diez On 27-May-2013 Encounter Diagnosis: Problem not documented 08:15 Appointment; Lopez Najera On 16-Apr-2013 Encounter Diagnosis: Problem not documented 08:15 Appointment; Lopez Najera On 02-Apr-2013 Encounter Diagnosis: Problem not documented 08:00 Appointment; Sofya Bar On 21-Mar-2013 Encounter Diagnosis: Problem not documented 09:30 Appointment; Yoni Moore On 13-Feb-2013 Encounter Diagnosis: Problem not documented 09:15 Appointment; Yoni Moore On 03-Dec-2012 Encounter Diagnosis: Problem not documented 09:45 Appointment; Yoni Moore On 27-Nov-2012 Encounter Diagnosis: Problem not documented 10:30 Appointment; Sher Diez On 21-Nov-2012 Encounter Diagnosis: Problem not documented 09:00 Appointment; Sher Diez On Encounter Diagnosis: Problem not documented 12:00 Appointment; Sher Diez On Encounter Diagnosis: Problem not documented 15:45 Appointment; Krista Ferrell On Encounter Diagnosis: Problem not documented 14:00 Appointment; Sher Diez On Encounter Diagnosis: Problem not documented 08:15 Appointment; Krista Ferrell On Encounter Diagnosis: Problem not documented 13:00
--- OUTSIDE RECORDS SUMMARY | 2017-08-20 13:13 | External Medical Summary | Summary of Care ---
:1945 Author Name Yoni Moore M.D. Address Unavailable Unavailable , Care Team Providers Name Role Phone Jazmine Mcdonough, Elgin Powell Unavailable Unavailable Oscar Mcdonough, Yoni Unavailable Unavailable Yoni Moore Unavailable Unavailable Unavailable [...] moderate stage (365.11, H40.1192) Status : Active Benign essential hypertension (401.1, I10) Status: Active Peripheral neuropathy (356.9, G62.9) Status: Active Seasonal allergic rhinitis due to other allergic trigger (477.8, J30.89) Status: Active Hypercholesterolemia (272.0, E78.00) Status: Active Hypertension (401.9, I10) Status: Active Acute non-recurrent sinusitis, unspecified location (461.9, J01.90) Status: Active Allergic rhinitis (477.9, J30.9) Status: Active Type 2 diabetes mellitus without retinopathy (250.00, E11.9) Status: Active Primary open-angle glaucoma, mild stage (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 Quantity: 30 Refills: 0 Yoni Moore M.D. 12-Sep-2007 Active SulfaSALAzine 500 MG Oral Tablet Delayed Release Take 1 tablet daily Quantity: 90 Refills: 0 Yoni Moore M.D. 12-Sep-2007 Active Vitamin D 45673 UNIT CAPS TAKE 1 TABLET PO Q MONTHLY Quantity: 12 Refills: 0 Yoni Moore M.D. 12-Sep-2007 Active Morphine Sulfate 10 MG/ML Injection Solution administer 5 mg IM now Quantity: 1 Refills: 0 Elgin Lucero M.D. Start 19-Jun-2014 Admin Requested Finasteride 5 MG Oral Tablet TAKE 1 TABLET DAILY. Refills: 0 Yoni Moore M.D. Active Vitamin B-12 1000 MCG Oral Tablet Take 1 tablet daily Refills: 0 Yoni Moore M.D. 12-Feb-2016 Active Allergies and Adverse Reactions Name [...] History of Implantation Of Intraspinal Neurostimulator Percutaneous XRay ABD Acute (Flat, Upright & PA Chest) Ordered: 11-Jul-2016 Immunization Name Dates Details Pneumo (Pneumovax) on: 27-Jan-2010 Lot #: [id number] Prevnar 13 Intramuscular Suspension on: Lot #: [id number] Fluzone High-Dose 0.5 ML Intramuscular Suspension Prefilled Syringe on: Lot #: [id number] Social History Name Dates Details - Status: Smoking Status Name Dates Details Former smoker Vital Signs Date Test Result Details 11-Jul-2016 15:47 BP Systolic 122 mm[Hg] Status: Comments: Location: ; Position: BP Diastolic 74 mm[Hg] Status: Comments: Location: ; Position: Temperature 37 c Status: Comments: Method: Heart Rate 87 /min Status: Comments: Location: ; Weight 196 lb Status: Physical Findings 97 Status: Comments: O2 Saturation Body Mass Index Calculated 25.86 kg/m2 Status: Body Surface Area Calculated 2.13 m2 Status: Results Date Description Value Details 11-Jul-2016 10:12 Diabetic Eye Exam Diabetic Eye Exam No Diabetic Retinopathy Diabetic Eye Exam on Chart Yes 12-Jul-2016 08:01 CBC w/ Auto Diff 7150 WBC 4.4 K/uL (Below low threshold) Range: 4.5-11.0 RBC 4.45 mil/uL Range: 4.20-5.40 HGB 14.4 g/dL Range: 14.0-18.0 HCT 42.0 % Range: 42.0-53.0 MCV 94.4 fL Range: 80.0-99.0 MCH 32.4 pg Range: 27.3-32.5 MCHC 34.3 % Range: 32.0-36.0 RDW 12.6 % Range: 11.6-14.8 PLATELETS 161 K/uL Range: 150-400 MPV 7.8 fL Range: 6.0-11.0 %NEUTRO 70.1 % Range: 37.0-80.0 %LYMPHS 18.1 % Range: 13.0-50.0 %MONO 7.2 % Range: 0.0-12.0 %EOS 0.7 % Range: 0.0-7.0 %BASO 0.3 % Range: 0.0-2.5 %MARIZA 3.6 % Range: 0.0-5.0 NEUTRO 3.1 K/uL Range: 2.0-6.9 LYMPHS 0.8 K/uL Range: 0.6-3.4 MONOS 0.3 K/uL Range: 0.0-0.9 EOS 0.0 K/uL Range: 0.0-0.7 BASO 0.0 K/uL Range: 0.0-0.2 08:17 Comprehensive Metabolic Panel 1212 SODIUM 139 mmol/L Range: 133-144 POTASSIUM 3.5 mmol/L Range: 3.5-5.1 CHLORIDE 103 mmol/L Range: 98-110 CARBON DIOXIDE 28.9 mmol/L Range: 23.0-33.0 ANION GAP 7 mmol/L Range: 6-16 BUN 26 mg/dL (Above high Range: 7-18 threshold) CREATININE, SERUM 1.72 mg/dL (Above high Range: 0.70-1.30 threshold) BUN:CREATININE RATIO 15 EST GFR, 47 ml/min (Below low Range: >60 threshold) EST GFR, NON-AFR JORDANIAN 39 ml/min (Below low Range: >60 threshold) Comments: EST GFR is reported in ml/min per 1.73 m2 of body surface area. ----- GLUCOSE 176 mg/dL (Above high Range: 70-100 threshold) ALK PHOSPHATASE 74 U/L Range: 46-116 TOTAL BILIRUBIN 0.40 mg/dL Range: 0.20-1.00 AST 29 U/L Range: 8-35 ALT 39 U/L Range: 16-63 ALBUMIN 3.2 g/dL (Below low Range: 3.4-5.0 threshold) TOTAL PROTEIN 6.8 g/dL Range: 6.4-8.2 A/G RATIO 0.9 units (Below low Range: 1.0-1.8 threshold) CALCIUM 8.4 mg/dL (Below low Range: 8.5-10.1 threshold) Plan of Care Name Dates Details Planned Observations XRay ABD Acute (Flat, Upright & PA Chest) On 12-Jul-2016 Intent Planned Goals not documented Planned Encounters Appointment; Provider: Sher Diez M.D. On 16-Jan-2017 08:15 Appointment; Provider: Yoni Moore M.D. On 16-Aug-2016 08:00 Interventions Provided Labs/Procedures/ImagingCBC w/ Auto Diff 7150; Done: Jul 12 2016 7: 42AMComprehensive Metabolic Panel 1212; Done: Jul 12 2016 7:42AM Instructions Name Dates Details Instructions not documented Encounters Appointment; Sher Diez M.D. On 11-Jul-2016 Encounter [...] Problem not documented 09:15 Appointment; Bob Arteaga M.D.,[facility], On 12-Aug-2015 Encounter Diagnosis: Problem not documented [...] Problem not documented 08:15 Appointment; Bob Arteaga M.D.,[facility], On 30-Jul-2014 Encounter Diagnosis: Problem not documented 08:45"
--- OUTSIDE RECORDS SUMMARY | 2017-08-20 13:13 | External Medical Summary | Summary of Care ---
:1945 Author Name Yoni Moore M.D. Address [address] [place], [place] [id number] Care Team Providers Name Role Phone Elgin Lucero M.D. Unavailable Unavailable Yoni Moore M.D. Unavailable Unavailable [...] Epidermal inclusion cyst (706.2, L72.0) Status: Active Anemia (285.9, D64.9) Status: Active [...] Bilateral leg pain (729.5, M79.604) Status: Active Bronchitis, acute (466.0, J20.9) Status: [...] of organic origin (607.84, N52.9) Status: Active Lower back pain (724.2, M54.5) Status: Active URI, acute (465.9, J06.9) Status: Active Syncope (780.2, R55) Status: Active Medications Name Dates Details Simvastatin [...] Yoni Moore M.D. Started 12-Sep-2007 ActiveVitamin D 15005 UNIT CAPS TAKE 1 TABLET PO Q MONTHLY Quantity: 12 Refills: 0 Yoni Moore M.D. 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 History of Extracaps Cataract Extract With Prosthesis Insert Left Eye AST 1180 Ordered:03-Aug-2015 CBC w/ Auto Diff 7150 Ordered:03-Aug-2015 HEMOGLOBIN A1C 3507 Ordered:03-Aug-2015 LIPID PROFILE 1184 Ordered:03-Aug-2015 Immunization Name Dates Details Pneumo (Pneumovax) Administered on:27-Jan-2010 Lot #: [id number] Social History Name Dates Details Smoking StatusFormer smoker Vital Signs Date Test Result Details No Known Vitals to report Results Date Description Value Details 06-Aug-2015 10:10 [...] Diez On 19-May-2010 15:15 Appointment; Provider: Krista Fererll On 02-May-2008 18:00 Instructions Instructions not documented [...]
--- OUTSIDE RECORDS SUMMARY | 2017-08-20 13:14 | External Medical Summary | Summary of Care ---
:1945 Author Name Alfonso Diane D.O. Address [address] [place], [place] [id number] Care Team Providers Name Role Phone Jenni Mcdonough, NELIDA, ,, Bob Estrada Unavailable Unavailable Jazmine Mcdonough, Elgin Powell Unavailable Unavailable Benedicto Bailey, Alfonso Powell Unavailable Unavailable Yoni Moore M.D. Unavailable Unavailable Yoni Moroe Primary Care Provider Unavailable Unavailable Unavailable Unavailable [...] Active Peripheral neuropathy (356.9, G62.9) Status: Active Fall (E888.9, W19.XXXA) Status: Active [...] Active Sinusitis, acute (461.9, J01.90) Status: Active Bronchitis, acute (466.0, J20.9) Status: Active Wheezing (786.07, R06.2) Status: Active COAG (chronic open-angle glaucoma), Moderate stage (365.11, H40.11X2) Status : Active Diabetes (250.00, E11.9) Status: Active Cellulitis of right leg without foot (682.6, L03.115) Status: Active Ulcer of right leg (707.10, L97.919) Status: Active Medications Name Dates Details Simvastatin [...] Yoni Moore M.D. Started 12-Sep-2007 ActiveVitamin D 61044 UNIT CAPS TAKE 1 TABLET PO Q [...] Capsule Refills: 0 Started 03-Mar-2014 ActiveVitamin D3 66362 UNIT Oral Capsule Refills: 0 Started 03-Mar-2014 ActiveFluticasone Propionate 50 MCG/ACT Nasal Suspension USE 2 SPRAYS IN EACH NOSTRIL TWICE DAILY. Quantity: 1 Refills: 3 Yoni Moore M.D. Started 21-Apr-2014 [id number] GM Bottle Morphine Sulfate 10 MG/ML Injection Solution administer 5 mg IM now Quantity: 1 Refills: 0 Elgin Lucero M.D. Started 19-Jun-2014 Admin RequestedAsmanex 14 Metered Doses 220 MCG/INH Inhalation Aerosol Powder Breath Activated INHALE 1 PUFF TWICE DAILY. Quantity: 14 Refills: 0 Alfonso Diane D.O. Started ActiveViagra 50 MG Oral Tablet TAKE 1 TABLET DAILY 1 HOUR BEFORE NEEDED Quantity: 10 Refills: 0 Yoni Moore M.D. Started 10-Dec-2014 Active Allergies and Adverse Reactions Name Dates [...] smoker Vital Signs Date Test Result Details 09-Mar-2015 14:19 BP Systolic 120 mm[Hg] Status: BP Diastolic 64 mm[Hg] Status: Temperature 97.9 f Status: Heart Rate 96 /min Status: O2 SAT 94 % Status: Results Date Description Value Details 16-Feb-2015 10:22 Diabetic Eye Exam Diabetic Eye Exam No Diabetic Retinopathy (Better) Diabetic Eye Exam on Chart Yes (Better) Plan of Care Planned Observations Name Dates Details Planned Goals not documented Goal Planned Encounters Appointment; Provider: Bob Arteaga On 12-Aug-2015 08:15 Appointment; Provider: Sher Diez On 06-Jul-2015 08:15 Appointment; Provider: Sher Diez On 19-May-2010 15:15 Appointment; Provider: Krista Ferrell On 02-May-2008 18:00 Instructions Instructions not documented Encounters Appointment; Alfonso Diane On 09-Mar-2015 Encounter Diagnosis: [...]
--- OUTSIDE RECORDS SUMMARY | 2017-08-20 13:14 | External Medical Summary | Summary of Care ---
:1945 Author Name [address]ena [address], Krista Elizondo Address [address] [facility] Unavailable [place], [place] [id number] Care Team Providers Name Role Phone Jazmine Mcdonough, Elgin Powell Unavailable Unavailable Mariaelena CHESTER RD, Krista Elizondo Unavailable Unavailable Yoni Moore M.D. 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 Quantity: 30 Refills: 0 Yoni Moore M.D. Start 12-Sep-2007 Active Aspirin 81 MG TABS TAKE 1 TABLET DAILY. Quantity: 30 Refills: 0 Yoni Moore M.D. Start 12-Sep-2007 Active SulfaSALAzine 500 MG Oral Tablet Delayed Release Take 1 tablet daily Quantity: 90 Refills: 0 Yoni Moore M.D. Start 12-Sep-2007 Active Vitamin D 41067 UNIT CAPS TAKE 1 TABLET PO Q [...] DAILY. Refills: 0 Yoni Moore M.D. Active Allergies and Adverse Reactions Name Dates [...] Prevnar 13 Intramuscular Suspension on: Lot #: [id number] Social History Name Dates Details - Status: Smoking Status Name Dates Details Former smoker Vital Signs Date Test Result Details No Known Vitals to report Results Date Description Value Details Results not documented Plan of Care Name Dates Details Planned Observations Planned Goals not documented Planned Encounters Appointment; Provider: Bob Arteaga M.D.|MARISA Brenner FACS, On 12-Aug-2016 08:15 Appointment; Provider: Yoni Moore M.D. On 12-Feb-2016 08:30 Appointment; Provider: Sher Diez M.D. On 11-Jan-2016 08:15 Instructions Name Dates Details Instructions not documented Encounters Appointment; Sher Diez M.D. On 17-Nov-2015 Encounter Diagnosis: Problem not documented 08:15 Appointment; Yoni Moore M.D. On Encounter Diagnosis: Problem not documented 09:15 Appointment; Bob Arteaga M.D.|MARISA Brenner FACS On 2015 Encounter Diagnosis: Problem not documented 08:15 Appointment; Yoni Moore M.D. On 04-Aug-2015 Encounter Diagnosis: Problem not documented 08:45 Appointment; Sher Diez M.D. On 06-Jul-2015 Encounter Diagnosis: Problem not documented 08:15 Appointment; Carlyn Crespo, TIFFANIE|HENRIK|C.DNetoENeto On 06-May-2015 Encounter Diagnosis: Problem not documented [...] Problem not documented 08:15 Appointment; Bob Arteaga M.D.|F.A.CErma|Sharonda,NELIDA|Sharonda,NELIDA, On 2014 Encounter Diagnosis: Problem not documented [...] Problem not documented 10:45 Appointment; Sher Diez M.D. On 31-Jan-2014 Encounter Diagnosis: Problem not documented 10:30 Appointment; Yoni Moore M.D. On 30-Dec-2013 Encounter Diagnosis: Problem not documented 14:15"
--- OUTSIDE RECORDS SUMMARY | 2017-08-20 13:14 | External Medical Summary | Summary of Care ---
:1945 Author Name Juan Daniel Mcdonough, Sid Address Unavailable Unavailable , Care Team Providers Name Role Phone Jazmine Mcdonough, Elgin Powell Unavailable Unavailable Juan Daniel Mcdonough, Sid Unavailable Unavailable Yoni Moore M.D. Unavailable Unavailable [...] Yoni Moore M.D. 12-Sep-2007 Active Vitamin D 17474 UNIT CAPS TAKE 1 TABLET PO Q [...] Prevnar 13 Intramuscular Suspension on: Lot #: [id number] Fluzone High-Dose 0.5 ML Intramuscular Suspension Prefilled Syringe on: Lot #: [id number] Family History Unknown Family Member Name Dates [...] low Range: >60 threshold) EST GFR, NON-AFR [place] 41 ml/min (Below low Range: >60 threshold) [...] Dates Details Instructions not documented Encounters Appointment; Yoni Moore M.D. On 16-Aug-2016 Encounter [...] Problem not documented 09:15 Appointment; Bob Arteaga M.D.,[facility], On 12-Aug-2015 Encounter Diagnosis: Problem not [...]
--- OUTSIDE RECORDS SUMMARY | 2017-08-20 13:14 | External Medical Summary | Summary of Care ---
:1945 Author Name Yoni Moore M.D. Address [address] [place], [place] [id number] Care Team Providers Name Role Phone Elgin [...] Yoni Moore M.D. Started 12-Sep-2007 ActiveVitamin D 97099 UNIT CAPS TAKE 1 TABLET PO Q MONTHLY Quantity: 12 Refills: 0 Yoni Moore M.D. Started 12-Sep-2007 ActiveHumaLOG 100 UNIT/ML Subcutaneous Solution Cartridge Refills: 0 Started 31-Jan-2014 ActiveIbuprofen 200 MG Oral Capsule Refills: 0 Started 03-Mar-2014 ActiveVitamin D3 43102 UNIT Oral Capsule Refills: 0 Started 03-Mar-2014 [...] m2 Status: Results Date Description Value Details 06-Jul-2015 10:08 Diabetic Eye Exam Diabetic Eye Exam No [...]
--- OUTSIDE RECORDS SUMMARY | 2017-08-20 13:14 | External Medical Summary | Summary of Care ---
:1945 Author Name Alfonso Diane D.O. Address [address] [place], [place] [phone] Care Team Providers Name Role Phone Elgin Lucero M.D. Unavailable Unavailable Alfonso Diane D.O. Unavailable Unavailable Yoni Moore M.D. Unavailable Unavailable [...] Status: Active Pseudophakia (V43.1, Z96.1) Status: Active Syncope (780.2, R55) Status: Active [...] mellitus without retinopathy (250.00, E11.9) Status: Active Acute non-recurrent sinusitis, unspecified location (461.9, J01.90) Status: Active Seasonal allergic rhinitis due to other allergic trigger (477.8, J30.89) Status: Active Medications Name Dates Details Aspirin 81 MG TABS TAKE 1 TABLET DAILY. Quantity: 30 Refills: 0 Yoni Moore M.D. 12-Sep-2007 Active SulfaSALAzine 500 MG Oral Tablet Delayed Release Take 1 tablet daily Quantity: 90 Refills: 0 Yoni Moore M.D. 12-Sep-2007 Active Vitamin D 73998 UNIT CAPS TAKE 1 TABLET PO Q [...] Refills: 0 Yoni Moore M.D. 12-Feb-2016 Active Sulfamethoxazole-Trimethoprim 800-160 MG Oral Tablet Take 1 tablet twice daily Quantity: 14 Refills: 0 Alfonso Diane D.O. Start 02-Mar-2016 End 09-Mar-2016 Active Cetirizine HCl - 10 MG Oral Tablet TAKE 1 TABLET DAILY NEEDED. Quantity: 1 Refills: 0 Alfonso Diane D.O. Start 02-Mar-2016 End 03-Mar-2016 Active Allergies and Adverse Reactions Name Dates [...] Prevnar 13 Intramuscular Suspension on: Lot #: [id number] Fluzone High-Dose 0.5 ML Intramuscular Suspension Prefilled Syringe on: Lot #: [id number] Social History Name Dates Details - Status: Smoking Status Name Dates Details Former smoker Vital Signs Date Test Result Details 02-Mar-2016 09:26 BP Systolic 180 mm[Hg] Status: Comments: Location: ; Position: BP Diastolic 94 mm[Hg] Status: Comments: Location: ; Position: Temperature 97.9 c Status: Comments: Method: Heart Rate 86 /min Status: Comments: Location: ; Physical Findings 96 Status: Comments: O2 Saturation 12-Feb-2016 08:29 BP Systolic 142 mm[Hg] Status: [...] low Range: >60 threshold) EST GFR, NON-AFR TUNISIAN 38 ml/min (Below low Range: >60 threshold) [...] LDL - CALCULATED 86 mg/dL Range: 0-130 09:03 HEMOGLOBIN A1C 3507 Comments: Fastin hours Hemoglobin A1C 7.9 % ESTIMATED AVG. GLUCOSE 180 09:07 THYROID STIM. HORMONE 3602 Comments: Fastin hours THYROID STIM. HORMONE 2.099 uIU/mL Range: 0.550-4.780 Comments: No established reference ranges for infants and children &lt ;2 years of age----- Plan of Care Name Dates Details Planned Observations Planned Goals not documented Planned Encounters Appointment; Provider: Bob Arteaga M.D.|NELIDA Brenner|NELIDA Mcdonough, On 12-Aug-2016 08:15 Appointment; Provider: Sher Diez M.D. On 11-Jul-2016 08:15 Appointment; Provider: Yoni Moore M.D. On 16-May-2016 08:30 Interventions Provided Medication ChangesCetirizine HCl - 10 MG Oral Tablet - StartSulfamethoxazole- Trimethoprim 800-160 MG Oral Tablet - Start Instructions Name Dates Details Instructions not documented Encounters Appointment; Yoni Moore M.D. On 12-Feb-2016 Encounter Diagnosis: Problem not documented 08:30 Appointment; Sher Diez M.D. On 11-Jan-2016 Encounter Diagnosis: Problem not documented 08:15 Appointment; Krista Ferrell RD|HENRIK|Mikhail On 23-Dec-2015 Encounter Diagnosis: Problem not documented 14:00 Appointment; Sher Diez M.D. On 17-Nov-2015 Encounter Diagnosis: Problem not documented 08:15 Appointment; Yoni Moore M.D. On Encounter Diagnosis: Problem not documented 09:15 Appointment; Bob Arteaga M.D.|NELIDA Brenner|NELIDA Mcdonough, On 2015 Encounter Diagnosis: Problem not documented 08:15 Appointment; Yoni Moore M.D. On 04-Aug-2015 Encounter Diagnosis: Problem not documented 08:45 Appointment; Sher Diez M.D. On 06-Jul-2015 Encounter Diagnosis: Problem not documented 08:15 Appointment; Carlyn Crespo RD|HENRIK|CEd On 06-May-2015 Encounter Diagnosis: Problem not documented [...] Problem not documented 08:15 Appointment; Bob Arteaga M.D.|Mali|NELIDA Mcdonough|Sharonda,NELIDA, On 2014 Encounter Diagnosis: Problem not documented [...]
--- OUTSIDE RECORDS SUMMARY | 2017-08-20 13:14 | External Medical Summary | Summary of Care ---
[...] Yoni Moore M.D. 12-Sep-2007 Active Vitamin D 29919 UNIT CAPS TAKE 1 TABLET PO Q [...] History of Implantation Of Intraspinal Neurostimulator Percutaneous Comprehensive Metabolic Panel 1212 Ordered: 11-Jul-2016 CBC w/ Auto Diff 7150 Ordered: 11-Jul-2016 XRay ABD Acute (Flat, Upright & PA Chest) Ordered: 11-Jul-2016 Immunization Name Dates Details Pneumo (Pneumovax) on: 27-Jan-2010 Lot #: [id number] Prevnar 13 Intramuscular Suspension on: Lot #: [id number] Fluzone High-Dose 0.5 ML Intramuscular Suspension Prefilled Syringe on: Lot #: [id number] Social History Name Dates Details - Status: [...] Retinopathy Diabetic Eye Exam on Chart Yes Plan of Care Name Dates Details Planned Observations XRay ABD Acute (Flat, Upright & PA Chest) On 12-Jul-2016 Intent Comprehensive Metabolic Panel 1212 On 12-Jul-2016 Intent CBC w/ Auto Diff 7150 On 12-Jul-2016 Intent Planned Goals not documented Planned Encounters Appointment; Provider: Sher Diez M.D. On 16-Jan-2017 08:15 Appointment; Provider: Yoni Moore M.D. On 16-Aug-2016 08:00 Instructions Name Dates Details Instructions not [...] Problem not documented 09:15 Appointment; Bob Arteaga M.D.,[facility], On 12-Aug-2015 Encounter Diagnosis: Problem not documented 08:15 Appointment; Yoni Mooer M.D. On 04-Aug-2015 Encounter Diagnosis: Problem not [...] Problem not documented 08:15 Appointment; Bob Arteaga M.D.,[facility], On 30-Jul-2014 Encounter Diagnosis: Problem not documented 08:45"
--- OUTSIDE RECORDS SUMMARY | 2017-08-20 13:15 | External Medical Summary | Summary of Care ---
[...] Yoni Moore M.D. 12-Sep-2007 Active Vitamin D 43738 UNIT CAPS TAKE 1 TABLET PO Q [...] Prevnar 13 Intramuscular Suspension on: Lot #: [id number] Fluzone High-Dose 0.5 ML Intramuscular Suspension Prefilled Syringe on: Lot #: [id number] Family History Unknown Family Member Name Dates [...] low Range: >60 threshold) EST GFR, NON-AFR COMORAN 41 ml/min (Below low Range: >60 threshold) [...] Problem not documented 09:15 Appointment; Bob Arteaga M.D.,[facility], On 12-Aug-2015 Encounter Diagnosis: Problem not [...]
--- OUTSIDE RECORDS SUMMARY | 2017-08-20 13:15 | External Medical Summary | Summary of Care ---
[...] other allergic trigger (477.8, J30.89) Status: Active Diabetes (250.00, E11.9) Status: Active Hypercholesterolemia (272.0, E78.00) Status: Active Hypertension (401.9, I10) Status: Active Medications Name Dates Details Aspirin 81 MG TABS TAKE 1 TABLET DAILY. Quantity: 30 Refills: 0 Yoni Moore M.D. Start 12-Sep-2007 Active SulfaSALAzine 500 MG Oral Tablet Delayed Release Take 1 tablet daily Quantity: 90 Refills: 0 Yoni Moore M.D. 12-Sep-2007 Active Vitamin D 91842 UNIT CAPS TAKE 1 TABLET PO Q MONTHLY Quantity: 12 Refills: 0 Yoni Moore M.D. 12-Sep-2007 Active Morphine Sulfate 10 MG/ML Injection Solution administer 5 mg IM now Quantity: 1 Refills: 0 Elgin Lucero M.D. Start 19-Jun-2014 Admin Requested Finasteride 5 MG Oral Tablet TAKE 1 TABLET DAILY. Refills: 0 Yoni Moroe M.D. Start Active Vitamin B-12 1000 MCG [...] Prevnar 13 Intramuscular Suspension on: Lot #: [id number] Fluzone High-Dose 0.5 ML Intramuscular Suspension Prefilled Syringe on: Lot #: [id number] Social History Name Dates Details - Status: Smoking Status Name Dates Details Former smoker Vital Signs Date Test Result Details 16-May-2016 08:39 BP Systolic 148 mm[Hg] Status: Comments: Location: ; Position: BP Diastolic 90 mm[Hg] Status: Comments: Location: ; Position: Temperature 36.1 c Status: Comments: Method: Heart Rate 95 /min Status: Comments: Location: ; Weight 206 lb Status: Physical Findings 98 Status: Comments: O2 Saturation Body Mass Index Calculated 27.18 kg/m2 Status: Body Surface Area Calculated 2.18 m2 Status: Results Date Description Value Details 16-May-2016 07:47 CBC w/ Auto Diff 7150 Comments: Fastin hours WBC 4.2 K/uL (Below low threshold) Range: 4.5-11.0 RBC 4.81 mil/uL Range: 4.20-5.40 HGB 15.8 g/dL Range: 14.0-18.0 HCT 47.5 % Range: 42.0-53.0 MCV 98.9 fL Range: 80.0-99.0 MCH 32.9 pg (Above high threshold) Range: 27.3-32.5 MCHC 33.2 % Range: 32.0-36.0 RDW 13.7 % Range: 11.6-14.8 PLATELETS 171 K/uL Range: 150-400 MPV 7.3 fL Range: 6.0-11.0 %NEUTRO 57.6 % Range: 37.0-80.0 %LYMPHS 26.0 % Range: 13.0-50.0 %MONO 10.4 % Range: 0.0-12.0 %EOS 1.7 % Range: 0.0-7.0 %BASO 0.9 % Range: 0.0-2.5 %MARIZA 3.4 % Range: 0.0-5.0 NEUTRO 2.5 K/uL Range: 2.0-6.9 LYMPHS 1.1 K/uL Range: 0.6-3.4 MONOS 0.4 K/uL Range: 0.0-0.9 EOS 0.1 K/uL Range: 0.0-0.7 BASO 0.0 K/uL Range: 0.0-0.2 08:10 AST 1180 Comments: Fastin hours AST 21 U/L Range: 8-35 08:10 BASIC METABOLIC PROFILE 1210 Comments: Fastin hours SODIUM 136 mmol/L Range: 133-144 POTASSIUM 4.6 mmol/L Range: 3.5-5.1 CHLORIDE 104 mmol/L Range: 98-110 CARBON DIOXIDE 25.7 mmol/L Range: 23.0-33.0 ANION GAP 6 mmol/L Range: 6-16 BUN 28 mg/dL (Above high Range: 7-18 threshold) CREATININE, SERUM 1.58 mg/dL (Above high Range: 0.70-1.30 threshold) EST GFR, 52 ml/min (Below low Range: >60 threshold) EST GFR, NON-AFR NORWEGIAN 43 ml/min (Below low Range: >60 threshold) Comments: EST GFR is reported in ml/min per 1.73 m2 of body surface area. ----- BUN:CREATININE RATIO 18 GLUCOSE 218 mg/dL (Above high Range: 70-100 threshold) CALCIUM 8.8 mg/dL Range: 8.5-10.1 08:11 LIPID PROFILE 1184 Comments: Fastin hours CHOLESTEROL 163 mg/dL Range: <200 TRIGLYCERIDES 233 mg/dL (Above high threshold) Range: 30-200 HDL Cholesterol 48 mg/dL Range: >39 NON HDL CHOLESTEROL 115 CARDIAC RSK FACTOR 3.4 units (Below low threshold) Range: 4.4-5.0 LDL - CALCULATED 68 mg/dL Range: 0-130 08:50 HEMOGLOBIN A1C 3507 Comments: Fastin hours Hemoglobin A1C 7.7 % ESTIMATED AVG. GLUCOSE 174 Plan of Care Name Dates Details Planned Observations Planned Goals not documented Planned Encounters Appointment; Provider: Yoni Moore M.D. On 16-Aug-2016 08:00 Appointment; Provider: Bob Arteaga M.D.,FACS, On 12-Aug-2016 08:15 Appointment; Provider: Sher Diez M.D. On 11-Jul-2016 08:15 Instructions Name Dates Details Instructions not documented Encounters Appointment; Alfonso Diane D.O. On 02-Mar-2016 Encounter [...] Problem not documented 09:15 Appointment; Bob Arteaga M.D.,NELIDA, On 12-Aug-2015 Encounter Diagnosis: Problem not documented [...] Problem not documented 08:15 Appointment; Bob Arteaga M.D.,NELIDA, On 30-Jul-2014 Encounter Diagnosis: Problem not documented [...] On 21-May-2014 Encounter Diagnosis: Problem not documented 08:30"
--- OUTSIDE RECORDS SUMMARY | 2017-08-20 13:15 | External Medical Summary | Summary of Care ---
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 Started 12-Sep-2007 ActiveVitamin D 22813 UNIT CAPS TAKE 1 TABLET PO Q MONTHLY Quantity: 12 Refills: 0 Yoni Moore M.D. Started 12-Sep-2007 ActiveHumaLOG 100 UNIT/ML Subcutaneous Solution Cartridge Refills: 0 Started 31-Jan-2014 ActiveIbuprofen 200 MG Oral Capsule Refills: 0 Started 03-Mar-2014 ActiveMorphine Sulfate 10 MG/ML Injection Solution administer 5 mg IM now Quantity: 1 Refills: 0 Elgin Lucero M.D. Started 19-Jun-2014 Admin RequestedFinasteride 5 MG Oral Tablet TAKE 1 TABLET DAILY. Refills: 0 Yoni Moore M.D. Started Active Allergies and Adverse Reactions Name [...] Pneumo (Pneumovax) Administered on:27-Jan-2010 Lot #: [id number] Prevnar 13 Intramuscular Suspension Administered on: Lot #: [id number] Social History Name Dates Details Smoking StatusFormer smoker Vital Signs Date Test Result Details 09:10 BP Systolic 160 mm[Hg] Status: BP Diastolic 90 mm[Hg] Status: Temperature 36.4 c Status: Heart Rate 88 /min Status: Weight 214 lb Status: O2 SAT 95 % Status: Body Mass Index Calculated 28.23 kg/m2 Status: Body Surface Area Calculated 2.21 m2 Status: Results Date Description Value Details Results not documented Plan of Care Planned Observations Name Dates Details Planned Goals not documented Goal Planned Encounters Appointment; Provider: Bob Arteaga On 12-Aug-2016 08:15 Appointment; Provider: Yoni Moore On 12-Feb-2016 08:30 Appointment; Provider: Sher Diez On 11-Jan-2016 08:15 Appointment; Provider: Sher Diez On 17-Nov-2015 08:15 Appointment; Provider: Sher Diez On 19-May-2010 15:15 Appointment; Provider: Krista Ferrell On 02-May-2008 18:00 Instructions Instructions not documented Encounters Appointment; Yoni Moore On Encounter Diagnosis: Problem not documented 09:15 Appointment; Bob Arteaga On 12-Aug-2015 Encounter Diagnosis: [...]
--- OUTSIDE RECORDS SUMMARY | 2017-08-20 13:15 | External Medical Summary | Summary of Care ---
:1945 Author Name Alfonso Diane D.O. 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 Quantity: 30 Refills: 0 Yoni Moore M.D. Start 12-Sep-2007 Active SulfaSALAzine 500 MG Oral Tablet Delayed Release Take 1 tablet daily Quantity: 90 Refills: 0 Yoni Moore M.D. 12-Sep-2007 Active Vitamin D 91774 UNIT CAPS TAKE 1 TABLET PO Q [...] 14 Refills: 0 Alfonso Diane D.O. Start 26-May-2016 End 02-Jun-2016 Active Allergies and Adverse Reactions Name Dates [...] Prevnar 13 Intramuscular Suspension on: Lot #: [id number] Fluzone High-Dose 0.5 ML Intramuscular Suspension Prefilled Syringe on: Lot #: [id number] Social History Name Dates Details - Status: Smoking Status Name Dates Details Former smoker Vital Signs Date Test Result Details 26-May-2016 08:58 BP Systolic 176 mm[Hg] Status: Comments: Location: ; Position: BP Diastolic 100 mm[Hg] Status: Comments: Location: ; Position: Temperature 98.7 f Status: Comments: Method: Heart Rate 102 /min Status: Comments: Location: ; Physical Findings 94 Status: Comments: O2 Saturation 16-May-2016 08:39 BP Systolic 148 mm[Hg] Status: [...] low Range: >60 threshold) EST GFR, NON-AFR MALDIVIAN 43 ml/min (Below low Range: >60 threshold) [...] On 16-Aug-2016 08:00 Appointment; Provider: Bob Arteaga M.D.,NELIDA, On 12-Aug-2016 08:15 Appointment; Provider: Sher Diez M.D. On 11-Jul-2016 08:15 Interventions Provided Medication ChangesSulfamethoxazole-Trimethoprim 800-160 MG Oral Tablet - Start Instructions Name Dates Details Instructions not documented Encounters Appointment; Yoni Moore M.D. On 16-May-2016 Encounter [...] Problem not documented 08:15 Appointment; Bob Arteaga M.D.,[facility], On 30-Jul-2014 Encounter Diagnosis: Problem not documented [...] On 02-Jun-2014 Encounter Diagnosis: Problem not documented 08:15"
--- OUTSIDE RECORDS SUMMARY | 2017-08-20 13:15 | External Medical Summary | Summary of Care ---
:1945 Author Name Yoni Moore M.D. Address [address] [place], [place] [id number] Care Team Providers Name Role Phone Elgin [...] Yoni Moore M.D. Started 12-Sep-2007 ActiveVitamin D 81746 UNIT CAPS TAKE 1 TABLET PO Q MONTHLY Quantity: 12 Refills: 0 Yoni Moore M.D. Started 12-Sep-2007 ActiveHumaLOG 100 UNIT/ML Subcutaneous Solution Cartridge Refills: 0 Started 31-Jan-2014 ActiveIbuprofen 200 MG Oral Capsule Refills: 0 Started 03-Mar-2014 ActiveVitamin D3 51961 UNIT Oral Capsule Refills: 0 Started 03-Mar-2014 [...] Of Intraspinal Neurostimulator Percutaneous HEMOGLOBIN A1C 3507 Ordered:03-Aug-2015 LIPID PROFILE 1184 [...]
--- OUTSIDE RECORDS SUMMARY | 2017-08-20 13:15 | External Medical Summary | Summary of Care ---
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 Started 12-Sep-2007 ActiveVitamin D 22027 UNIT CAPS TAKE 1 TABLET PO Q [...] Capsule Refills: 0 Started 03-Mar-2014 ActiveVitamin D3 63351 UNIT Oral Capsule Refills: 0 Started 03-Mar-2014 ActiveFluticasone Propionate 50 MCG/ACT Nasal Suspension USE 2 SPRAYS IN EACH NOSTRIL TWICE DAILY. Quantity: 1 Refills: 3 Yoni Moore M.D. Started 21-Apr-2014 Loauur50 GM Bottle Morphine Sulfate 10 MG/ML Injection [...] 18:00 Instructions Instructions not documented Encounters Appointment; Carlyn Crespo On 06-May-2015 Encounter Diagnosis: [...] Encounter Diagnosis: Problem not documented 14:15 Appointment; oYni Moore On 20-Dec-2013 Encounter Diagnosis: Problem not [...]
--- OUTSIDE RECORDS SUMMARY | 2017-08-20 13:16 | External Medical Summary | Summary of Care ---
[...] Yoni Moore M.D. 12-Sep-2007 Active Vitamin D 38978 UNIT CAPS TAKE 1 TABLET PO Q [...] Prevnar 13 Intramuscular Suspension on: Lot #: [id number] Fluzone High-Dose 0.5 ML Intramuscular Suspension Prefilled Syringe on: Lot #: [id number] Social History Name Dates Details - Status: [...] low Range: >60 threshold) EST GFR, NON-AFR PERUVIAN 41 ml/min (Below low Range: >60 threshold) [...] Dates Details Instructions not documented Encounters Appointment; oYni Moore M.D. On 11-Jul-2016 Encounter Diagnosis: Problem [...] Problem not documented 08:15 Appointment; Krista Ferrell RD|[facility]EN[facility]K|[facility] On 23-Dec-2015 Encounter Diagnosis: Problem not documented 14:00 Appointment; Sher Diez M.D. On 17-Nov-2015 Encounter Diagnosis: Problem not documented 08:15 Appointment; Yoni Moore M.D. On Encounter Diagnosis: Problem not documented 09:15 Appointment; Bob Arteaga M.D.,[facility], On 12-Aug-2015 Encounter Diagnosis: Problem not documented 08:15 Appointment; Yoni Moore M.D. On 04-Aug-2015 Encounter Diagnosis: Problem not documented 08:45 Appointment; Sher Diez M.D. On 06-Jul-2015 Encounter Diagnosis: Problem not documented 08:15 Appointment; Carlyn Crespo RD|HENRIK|C.DNetoENeto On 06-May-2015 Encounter Diagnosis: Problem not documented [...]
--- OUTSIDE RECORDS SUMMARY | 2017-08-20 13:16 | External Medical Summary ---
:1945 Author Name GENERATED, SYSTEM Care Team Providers Name Role Phone MD LUIS, ELENO Primary Care Provider [phone] Reason For Visit Reason for Visit from 07/03/2016 3:30 PM:Pt Stated Reason for Adm : Small Bowel Obstruction Chief Complaint SMALL BOWEL OBSTRUCTION Social History Social History from 07/03/2016 3:30 PM:Tobacco Use? : Former Smoker Functional Status Functional Status from 07/06/2016 7:00 AM:Weight Bearing Status : FullAssist Level : Partial# Assists : 1Functional Status from 07/05/2016 7:35 PM:LOC : AlertOriented To : Person,Place,TimeWeight Bearing Status : FullAssist Level : Partial# Assists : 1Functional Status from 07/05/2016 3:45 PM:LOC : AlertOriented To : Person,Place,TimeWeight Bearing Status : FullAssist Level : Partial# Assists : 1Functional Status from 07/04/2016 7:20 PM:LOC : AlertOriented To : Person,Place,Time,EventWeight Bearing Status : FullAssist Level : Partial# Assists : 1Functional Status from 07/04/2016 6:00 PM:# Assists : 1Functional Status from 07/04/2016 10:29 AM:# Assists : 1Functional Status from 07/04/2016 9:05 AM:LOC : AlertOriented To : Person,Place,Time,EventWeight Bearing Status : FullAssist Level : Partial# Assists : 1Functional Status from 4:05 AM:# Assists : 1Functional Status from 07/03/2016 9:06 PM:LOC : AlertOriented To : Person,Place,Time,EventWeight Bearing Status : FullAssist Level : Partial# Assists : 1Functional Status from 07/03/2016 3:30 PM:LOC : AlertOriented To : Person,Place,TimeWeight Bearing Status : FullAssist Level : Partial# Assists : 1 Vital Signs Hospital Vital Signs from 07/06/2016 3:30 PM:Height : 6/1 ft,inTemperature : 98.6 FPulse : 101Respirations : 20BP : 153/79Hospital Vital Signs from 2016 9:44 AM:Height : 6/1 ft,inHospital Vital Signs from 07/06/2016 8:07 AM: Height : 6/1 ft,inBP : 200/80Hospital Vital Signs from 07/06/2016 7:38 AM:Height : 6/1 ft,inTemperature : 97.6 FPulse : 98Respirations : 20BP : 221/98Hospital Vital Signs from 07/06/2016 4:37 AM:Height : 6/1 ft,inPulse : 94BP : 168/ 74Hospital Vital Signs from 07/05/2016 10:42 PM:Height : 6/1 ft,inTemperature : 99.3 FPulse : 96Respirations : 18BP : 143/65Hospital Vital Signs from 07/05/2016 4:38 PM:Height : 6/1 ft,inTemperature : 96.8 FPulse : 106Respirations : 18BP : 185/86Hospital Vital Signs from 07/05/2016 1:31 PM:Height : 6/1 ft,inPulse : 108BP : 190/117Hospital Vital Signs from 07/05/2016 7:27 AM:Height : 6/1 ft, inTemperature : 97.6 FPulse : 101Respirations : 18BP : 192/92Hospital Vital Signs from 07/05/2016 6:30 AM:Height : 6/1 ft,inTemperature : 99.1 FPulse : 99Respirations : 22BP : 209/99Hospital Vital Signs from 07/04/2016 10:51 PM: Height : 6/1 ft,inTemperature : 97.8 FPulse : 98Respirations : 18BP : 186/ 78Hospital Vital Signs from 07/04/2016 4:01 PM:Height : 6/1 ft,inBP : 180/ 78Hospital Vital Signs from 07/04/2016 3:25 PM:Height : 6/1 ft,inTemperature : 98.8 FPulse : 82Respirations : 18BP : 192/71Hospital Vital Signs from 07/04/2016 2:43 PM:Height : 6/1 ft,inHospital Vital Signs from 07/04/2016 7:21 AM:Height : 6 /1 ft,inTemperature : 96.4 FPulse : 109Respirations : 18BP : 179/84Hospital Vital Signs from 07/03/2016 10:01 PM:Height : 6/1 ft,inTemperature : 98.1 FPulse : 93Respirations : 18BP : 138/63Hospital Vital Signs from 07/03/2016 6:33 PM: Height : 6/1 ft,inTemperature : 99.0 FPulse : 96Respirations : 18BP : 124/ 58Hospital Vital Signs from 07/03/2016 3:46 PM:Weight : 91.4/ kgHeight : 6/1 ft, inTemperature : 96.5 FPulse : 104Respirations : 18BP : 121/85Hospital Vital Signs from 07/03/2016 3:30 PM:Weight : 91.4/ kgHeight : 6/1 ft,in Results Chemistry from 07/06/2016 3:09 [id number] MMOL/L H (136-145 MMOL/L) POTASSIUM3.6 MMOL/L (3.5-5.1 MMOL/L) RTMNFSOQ210 MMOL/L H (98-107 MMOL/L) LUW536.3 MMOL/L (21.0-32.0 MMOL/L) *ANION GAP9.7 MMOL/L (8.0-16.0 MMOL/L) BUN40 MG/DL H (7-18 MG/DL) CREATININE1.99 MG/DL H (0.70-1.30 MG/DL) *BUN/CREATININE RATIO20.1 H (9.1-17.0 ) SCOIHBU273 MG/DL H (65-99 MG/DL) CALCIUM9.3 MG/DL (8.5-10.1 MG/DL)Chemistry from 07/06/2016 6:13 [id number] MMOL/ L H (136-145 MMOL/L) POTASSIUM4.0 MMOL/L (3.5-5.1 MMOL/L) [id number] MMOL/L H (98-107 MMOL/L) TJV908.4 MMOL/L (21.0-32.0 MMOL/L) *ANION GAP8.6 MMOL/L (8.0-16.0 MMOL/L) BUN41 MG/DL H (7-18 MG/DL) CREATININE2.09 MG/DL H (0.70-1.30 MG/DL) *BUN/CREATININE RATIO19.6 H (9.1-17.0 ) YWWCNGO223 MG/DL H (65-99 MG/DL) *GFR EST NON AFR VWBSENXJ42 ML/MIN *GFR EST AFR AMER35 ML/MIN CALCIUM9.0 MG/DL (8.5-10.1 MG/DL) MAGNESIUM2.2 MG/DL (1.8-2.4 MG/DL) PHOSPHORUS3.6 MG/DL (2.6-4.7 MG/DL)Chemistry from 07/05/2016 5:04 [id number] MMOL/L H (136-145 MMOL/L) POTASSIUM4.5 MMOL/L (3.5-5.1 MMOL/L) WAGHQIUB029 MMOL/L H (98-107 MMOL/L) ELS456.8 MMOL/L (21.0-32.0 MMOL/L) *ANION GAP11.2 MMOL/L (8.0-16.0 MMOL/L) BUN42 MG/DL H (7-18 MG/DL) CREATININE1.90 MG/DL H (0.70-1.30 MG/DL) *BUN/CREATININE RATIO22.1 H (9.1-17.0 ) LLVMKFQ720 MG/DL H (65-99 MG/DL) *GFR EST NON AFR JFVOLLDW54 ML/MIN *GFR EST AFR AMER40 ML/MIN CALCIUM8.6 MG/DL (8.5-10.1 MG/DL) MAGNESIUM2.1 MG/DL (1.8-2.4 MG/DL) PHOSPHORUS3.4 MG/DL (2.6-4.7 MG/DL)DX Radiology from 07/06/2016 8:30 AMOBSTRUCTIVE SERIESHistory: Bowel Obstruction . Technique: 2 view abdomen Priors: Correlation is made with small bowel series dated 07/05 1017 Findings: Since the prior study there has been interval passage of enteric contrast material from the small bowel into the colon. There is minimal residual contrast material within the small bowel. No gas-filled dilated loops of small bowel are seen. A nasogastric tube extends into the stomach. Note is made of colonic diverticulosis. There is no free intra-abdominal gas. There are no suspicious calculi. Impression: Interval passage of contrast material into the colon and no residual dilated loops of small bowel seen. Electronically signed by: Fiona King MD Dictated: 07/06/2016 08:44DX Radiology from 07/05/2016 8:08 AMSMALL BOWEL ( GASTROGRAFIN)History: Pain. Small Bowel Obstruction Priors: None. Technique: Preliminary virtual assistant film of the abdomen was performed. Following administration of enteric contrast material, radiographs of the abdomen were performed at appropriate time intervals. . 0 Seconds of fluoroscopy time were utilized and no spot films were performed Findings: The stomach is normal in caliber. The proximal mid small bowel is moderately distended with complete decompression of distal small bowel. There is apparent transition point in the right lower quadrant consistent with moderate small-bowel obstruction. The terminal ileum is identified and appears unremarkable. Normal transit time of 60 minutes. Impression: Moderate partial small bowel obstruction with a transition point in right lower quadrant. Electronically signed by: Yovani Nava MD Dictated: 07/05/2016 12:19 Problems Encounter Diagnosis Fall Risk Status:Active.Mobility Impairment Status:Active.Nausea & Vomiting Status:Active.Small Bowel Obstruction Status:Active. Encounters Encounter Diagnosis Fall Risk Status:Active.Mobility Impairment Status:Active.Nausea & Vomiting Status:Active.Small Bowel Obstruction Status:Active. Plan of Care Treatment Plan from 07/06/2016 8:34 AM:Care Management Note :talked with Dr Salgado - patient continues to be nauseated and vomiting despite NG tube. X ray in room at this time doing an obstructive series.labs and vital signs noted. Na 155. Chl 115. Bun 41. Cr 2.09. Glucose 245.Continue NG, NPO, lab, and imaging monitoring. IVF at 50. BP 221/98 - IV Hydralazine given.Treatment Plan from 07/04 10:00 AM:Care Management Note : SW spoke with patient and spouse regarding possible needs at discharge. Spouse stated that she would plan for him to return home where they live together. Both at this time deny needing assistance to be set up. Contact information left in patient's room, SW will continue to assist as needed.Treatment Plan from 07/04/2016 9:17 AM:Care Management Note :Admission status: Outpatient observationPatient presented to ER for complaints of chest pain, bloated, diarrhea, and arm cramps.labs and vital signs noted. Bun 53. Cr 2.39. Glucose 334.Abdominal series: Mildly distended loops of small bowel and stomach. These findings may reflect small bowel obstruction versus ileus.CT abd: Findings consistent with small bowel obstruction with transition zone within the left lower quadrant. Cholelithiasis. Sigmoid diverticulosis.NG to LIS. Strict I/O. Up ad judson. SCDs. NPO. Bedside glucose checks every 6 hours. Follow labs. IVF at 125. Lovenox.patient meets inpatient per [facility] - talked with Nelli Chowdhury APRN. see orders for inpatient status. patient is anticipated longer than 2 midnights. Procedures Completed , on 11/18/2012 12:00 AMCompleted , on 11/18/2012 12:00 AMCompleted , on 12:00 AMCompleted , on 11/18/2012 12:00 AM Immunizations No immunizations administered or ordered. Hospital Course Hospital Discharge Instructions Allergies, Adverse Reactions, Alerts Augmentin causes Sick at stomach.No Latex Allergy.No IV Contrast Allergy. Medication Medication reconciliation has not been performed.
--- OUTSIDE RECORDS SUMMARY | 2017-08-20 13:16 | External Medical Summary | Summary of Care ---
:1945 Author Name Jenni Mcdonough, NELIDA, ,Bob Address [address], [place] [id number] Care Team Providers Name Role Phone Jenni Mcdonough, NELIDA, ,, Bob Estrada Unavailable Unavailable Jazmine Mcdonough, Elgin Powell Unavailable Unavailable Yoni [...] end of radius (813.42, S52.509A) Status: Active Primary open angle glaucoma (365.11, H40.11X0) Status: Active Diabetes (250.00, E11.9) Status: Active Bilateral leg pain (729.5, M79.604) Status: Active URI, acute (465.9, J06.9) Status: Active Lower back pain (724.2, M54.5) Status: Active Benign prostatic hypertrophy (600.00, N40.0) Status: Active Medications Name Dates Details Multiple Vitamin Oral Tablet TAKE 1 TABLET DAILY. Quantity: 100 Refills: 0 Yoni Moore M.D. Started 12-Sep-2007 [...] Yoni Moore M.D. Started 12-Sep-2007 ActiveVitamin D 82944 UNIT CAPS TAKE 1 TABLET PO Q [...] Capsule Refills: 0 Started 03-Mar-2014 ActiveVitamin D3 36729 UNIT Oral Capsule Refills: 0 Started 03-Mar-2014 ActiveFluticasone Propionate 50 MCG/ACT Nasal Suspension USE 2 SPRAYS IN EACH NOSTRIL TWICE DAILY. Quantity: 1 Refills: 3 Yoni Moore M.D. Started 21-Apr-2014 Noaaue24 GM Bottle Morphine Sulfate 10 MG/ML Injection [...] 12-Aug-2015 08:15 Appointment; Provider: Sher Diez On 08:15 Appointment; Provider: Sher Diez On 19-May-2010 15:15 Appointment; Provider: Krista Ferrell On 02-May-2008 18:00 Instructions Instructions not documented Encounters Appointment; Bob Arteaga On 30-Jul-2014 Encounter Diagnosis: [...] Encounter Diagnosis: Problem not documented 14:30 Appointment; hSer Diez On Encounter Diagnosis: Problem not documented [...] On Encounter Diagnosis: Problem not documented 13:00 Appointment; Jn Heck On Encounter Diagnosis: Problem not documented 08:30 Appointment; Yoni Moore On Encounter Diagnosis: Problem not documented 08:45
--- OUTSIDE RECORDS SUMMARY | 2017-08-20 13:16 | External Medical Summary | Summary of Care ---
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 Started 12-Sep-2007 ActiveVitamin D 98831 UNIT CAPS TAKE 1 TABLET PO Q [...] Capsule Refills: 0 Started 03-Mar-2014 ActiveVitamin D3 10552 UNIT Oral Capsule Refills: 0 Started 03-Mar-2014 ActiveFluticasone Propionate 50 MCG/ACT Nasal Suspension USE 2 SPRAYS IN EACH NOSTRIL TWICE DAILY. Quantity: 1 Refills: 3 oYni Moore M.D. Started 21-Apr-2014 [id number] GM Bottle Morphine Sulfate 10 MG/ML Injection [...] smoker Vital Signs Date Test Result Details 01-Jul-2014 14:17 BP Systolic 128 mm[Hg] Status: BP Diastolic 78 mm[Hg] Status: Heart Rate 114 /min Status: Temperature 36.8 c Status: Weight 217 lb Status: O2 SAT 88 % Status: Body Mass Index Calculated 28.63 kg/m2 Status: Body Surface Area Calculated 2.23 m2 Status: 19-Jun-2014 15:08 BP Systolic 136 mm[Hg] Status: BP Diastolic 76 mm[Hg] Status: Heart Rate 136 /min Status: Temperature 99.1 c Status: O2 SAT 97 % Status: 16-Jun-2014 09:29 BP Systolic 150 mm[Hg] Status: BP Diastolic 90 mm[Hg] Status: Heart Rate 112 /min Status: Respiration Rate 20 /min Status: Temperature 98.5 c Status: O2 SAT 96 % Status: Results Date Description Value Details 19-Jun-2014 17:27 ULTRASOUND LEG Comments: Exam Date: 16: 51Dictation Date: 17:27 ARTERIES-BILATERAL XS LEG ARTERIES (Better) Plan of Care Planned Observations Name Dates Details Planned Goals not documented Goal Planned Encounters Appointment; Provider: Sher Diez On 09:15 Appointment; Provider: Bob Arteaga On 30-Jul-2014 08:45 Appointment; Provider: Sher Diez On 19-May-2010 15:15 Appointment; Provider: Krista Ferrell On 02-May-2008 18:00 Instructions Instructions not documented Encounters Appointment; Lopez Najera On 03-Jul-2014 Encounter Diagnosis: [...]
--- OUTSIDE RECORDS SUMMARY | 2017-08-20 13:16 | External Medical Summary ---
:1945 Author Name GENERATED, SYSTEM Care Team Providers Name Role Phone MD LUIS, ELENO Primary Care Provider [phone] Reason For Visit Reason for Visit from 05/22/2017 5:53 PM:Pt Stated Reason for Adm : Injuries to left thumb and index finger Chief Complaint DEEP FINGER LACERATION Social History Social History from 05/22/2017 7:24 PM:Tobacco Use? : Former SmokerSocial History from 05/22/2017 5:53 PM:Tobacco Use? : Former Smoker Functional Status Functional Status from 05/22/2017 7:52 PM:LOC : AlertFunctional Status from 2017 7:41 PM:LOC : AlertOriented To : Person,Place,Time,EventFunctional Status from 05/22/2017 7:27 PM:LOC : DrowsyFunctional Status from 05/22/2017 5:53 PM:LOC : AlertOriented To : Person,Place,Time,EventWeight Bearing Status : FullAssist Level : Independent# Assists : Independent Vital Signs Hospital Vital Signs from 05/22/2017 8:15 PM:Heart Rate : 74Resp Rate : 18Hospital Vital Signs from 05/22/2017 8:10 PM:Temp : 97.3Heart Rate : 75Resp Rate : 14Systolic BP (mmHg) : 187Diastolic BP (mmHg) : 102Mean BP (mmHg) : 136O2 Saturation (%) : 96Hospital Vital Signs from 05/22/2017 8:05 PM:Heart Rate : 71Resp Rate : 17O2 Saturation (%) : 96Hospital Vital Signs from 05/22/2017 8:00 PM:Temp : 97.1Heart Rate : 77Resp Rate : 18Systolic BP (mmHg) : 177Diastolic BP (mmHg) : 99Mean BP (mmHg) : 127O2 Saturation (%) : 97Hospital Vital Signs from 7:55 PM:Heart Rate : 78Resp Rate : 16O2 Saturation (%) : 96Hospital Vital Signs from 05/22/2017 7:45 PM:Heart Rate : 71Resp Rate : 10Systolic BP (mmHg ) : 156Diastolic BP (mmHg) : 98Mean BP (mmHg) : 136O2 Saturation (%) : 97Hospital Vital Signs from 05/22/2017 7:40 PM:Temp : 97Heart Rate : 71Resp Rate : 13Systolic BP (mmHg) : 149Diastolic BP (mmHg) : 86Mean BP (mmHg) : 110O2 Saturation (%) : 97Hospital Vital Signs from 05/22/2017 7:35 PM:Heart Rate : 74Resp Rate : 19Systolic BP (mmHg) : 129Diastolic BP (mmHg) : 80Mean BP (mmHg) : 107O2 Saturation (%) : 98Hospital Vital Signs from 05/22/2017 7:30 PM:Heart Rate : 78Resp Rate : 11Systolic BP (mmHg) : 135Diastolic BP (mmHg) : 65Mean BP ( mmHg) : 89O2 Saturation (%) : 99Hospital Vital Signs from 05/22/2017 7:27 PM:Temp : 97.1Heart Rate : 73Resp Rate : 12Systolic BP (mmHg) : 125Diastolic BP (mmHg) : 97Mean BP (mmHg) : 109O2 Saturation (%) : 100Hospital Vital Signs from 2017 5:53 PM:Weight : 99.79/ kgHeight : 6/1 ft,inHospital Vital Signs from 2017 4:28 PM:Weight : 220/ lbs,ozHeight : 6/1 ft,inTemperature : 98.5 FPulse : 84Respirations : 16BP : 189/105 Results Problems Encounter Diagnosis Fall Risk Status:Active.Additional Problems Mobility Impairment Comment:Problem resolved by [facility] upon Discharge , Status:Resolved.Nausea & Vomiting Comment:Problem resolved by [facility] [employer] upon Discharge, Status:Resolved.Small Bowel Obstruction Comment: Problem resolved by [facility] [employer] upon Discharge, Status:Resolved. Encounters Encounter Diagnosis Fall Risk Status:Active. Plan of Care Follow-up Appointments from 05/22/2017 7:24 PM:#1 Office appointment: : Patient to call Dr. Hart's office to schedule follow up for 7 days.Address # 1 : [facility]: [address] [place]- or [phone] Procedures Completed Procedure Code: [id number] Procedure Name: not valued, on 07/04/2016 12: 00 AMCompleted , on 11/18/2012 12:00 AMCompleted , on 11/18/2012 12:00 AMCompleted , on 11/18/2012 12:00 AMCompleted , on 11/18/2012 12:00 AM Immunizations No immunizations administered or ordered. Hospital Course Hospital Discharge Instructions How to care for yourself at home from 05/22/2017 7:24 PM:Discharge Activity : Activity as tolerated,May Shower,Do not engage in sports, heavy work or heavy lifting until your physician gives permissionDo not drive or operate machinery for: : 24 hours or while taking narcotic pain medicationDischarge Diet : As before hospitalization,Diet as toleratedDischarge Diet: : Avoid greasy, spicy foods for next 24 hours, as they may cause nausea. Eat a smallsnack with narcotic pain medication administration.Discharge Wound Care : Keep dressings dry,Notify your physician if the following develops: redness, swelling, drainage or color of drainage changes, odor or increased pain.Remove dressing in : : Do not remove, until you see your physicianCall your doctor if: : Fever over 101 F or severe chills,Chest pain or other unexplained symptoms,Tingling or numbness develops,A sudden increase or decrease in weight,You have persistent or worsening symptoms,If you have Heart Failure and you gain 3 pounds within 1 week or your symptoms worsen. (Weigh at home tomorrow morning) Specific Discharge Teaching Instructions provided: : NoDischarge on Warfarin : No Allergies, Adverse Reactions, Alerts This section is entry level sales representative of the current allergy information, at the time of the CCD generation. In the case of regeneration of the CCD, the allergy information may not reflect the state of known allergies at the time of the CCD' s subject visit. Darvocet-N causes "made me feel goofy".Augmentin causes Sick at stomach.No Latex Allergy.No IV Contrast Allergy.No Known Food Allergies. Medication Medication reconciliation has not been performed.
--- OUTSIDE RECORDS SUMMARY | 2017-08-20 13:16 | External Medical Summary | Summary of Care ---
:1945 Author Name Jenni Mcdonough, NELIDA, ,Bob Address [address], [place] [id number] Care Team Providers Name Role Phone Jenni [...] Yoni Moore M.D. Started 12-Sep-2007 ActiveVitamin D 67214 UNIT CAPS TAKE 1 TABLET PO Q [...] Capsule Refills: 0 Started 03-Mar-2014 ActiveVitamin D3 69392 UNIT Oral Capsule Refills: 0 Started 03-Mar-2014 ActiveFluticasone Propionate 50 MCG/ACT Nasal Suspension USE 2 SPRAYS IN EACH NOSTRIL TWICE DAILY. Quantity: 1 Refills: 3 Yoni Moore M.D. Started 21-Apr-2014 [id number] GM Bottle Morphine Sulfate 10 MG/ML Injection [...] Percutaneous PSA ( PROSTATE SPECIFIC ANTIGEN) 3100 Ordered:18-Jul-2014 Immunization Name Dates Details Pneumo (Pneumovax) Administered [...] Body Surface Area Calculated 2.23 m2 Status: Results Date Description Value Details [...]
--- OUTSIDE RECORDS SUMMARY | 2017-08-20 13:16 | External Medical Summary | Summary of Care ---
:1945 Author Name Yoni Moore M.D. Address [address], [place] [id number] Care Team Providers Name Role Phone Jenni Mcdonough, NELIDA, ,, Bob Estrada Unavailable Unavailable Jazmine Mcdonough, Elgin Powell Unavailable Unavailable Oscar [...] Active Sinusitis, acute (461.9, J01.90) Status: Active Medications Name Dates Details Simvastatin [...] Yoni Moore M.D. Started 12-Sep-2007 ActiveVitamin D 36173 UNIT CAPS TAKE 1 TABLET PO Q [...] Capsule Refills: 0 Started 03-Mar-2014 ActiveVitamin D3 88074 UNIT Oral Capsule Refills: 0 Started 03-Mar-2014 ActiveFluticasone Propionate 50 MCG/ACT Nasal Suspension USE 2 SPRAYS IN EACH NOSTRIL TWICE DAILY. Quantity: 1 Refills: 3 Yoni Moore M.D. Started 21-Apr-2014 [id number] GM Bottle Morphine Sulfate 10 MG/ML Injection Solution administer 5 mg IM now Quantity: 1 Refills: 0 Elgin Lucero M.D. Started 19-Jun-2014 Admin RequestedAzithromycin 250 MG Oral Tablet TAKE 2 TABLETS ON DAY 1 THEN TAKE 1 TABLET A DAY FOR 4 DAYS. Quantity: 1 Refills: 0 Yoni Moore M.D. Started Ended Active6 Tablet Box Allergies and Adverse Reactions Name Dates Details [...] smoker Vital Signs Date Test Result Details 08:59 BP Systolic 144 mm[Hg] Status: BP [...] Instructions Instructions not documented Encounters Appointment; Yoni oMore On Encounter Diagnosis: Problem not documented 09:00 [...]
[2017-08-20] MEDS ORDERED: FUROSEMIDE 40 MG/4 ML INJECTION IVP ONE (13:50)
[2017-08-20 16:04] VITALS: BMI 29.5
[2017-08-20] MEDS ORDERED: ACETAMINOPHEN 325 MG TABLET PO PRN (18:26)
[2017-08-20] MEDS ORDERED: ONDANSETRON 4 MG/2 ML INJECTION IVP PRN (18:28)
[2017-08-20] MEDS ORDERED: Bisacodyl EC TAB 5 MG TABLET PO PRN (18:29)
[2017-08-20] MEDS ORDERED: NITROGLYCERIN 0.4 MG SUBLINGUAL TABLET SL PRN (18:30)
[2017-08-20] MEDS: DOCUSATE SODIUM 100 MG CAPSULE PO SCH (21:16)
[2017-08-20] MEDS ORDERED: ZOLPIDEM 5 MG TABLET PO PRN (22:49)
[2017-08-21] MEDS: HYDRALAZINE 20 MG/ML INJECTION IVP PRN ×4 (03:54→20:53)
[2017-08-21] MEDS ORDERED: ERGOCALCIFEROL 50,000 UNIT CAPSULE PO SCH (09:00)
[2017-08-21] MEDS: FINASTERIDE 5 MG TABLET PO SCH (10:21)
[2017-08-21] MEDS: ASPIRIN *EC* 81 MG TABLET PO SCH (10:21)
[2017-08-21] MEDS: DOCUSATE SODIUM 100 MG CAPSULE PO SCH ×2 (10:22→20:39)
--- NOTE | 2017-08-21 13:03 | Cardiology History & Physical ---
History of Present Illness Chief complaint: dyspnea HPI: "Angel Luis" is a 72 year old male with a history of HTN and DM who presented to the ED with dyspnea at rest. He has had progressive dyspnea over the last week to 10 days with increased abdominal girth. Yesterday he walked to the car from [employer] and back and became so dyspneic he was unable to sing the hymns. He has no known cardiac history, he has a history of HTN (untreated due to syncopal events with concurrent hypoglycemia/hypotension), but no HLD. He has significant peripheral neuropathy, but no current/former AUTUMN. He reportedly has had some rhinitis and possibly a recent cold. Dr. Dumont was contacted for admission for CHF and he was put in observation on the Medical floor. Approximately 0330 this morning he was noted to be in complete heart block on telemetry and was transferred to CCU for close monitoring. He denies recent illness, fever, chills, cough, sore throat, palpitations, chest pain or pressure, dizziness, lightheadedness, syncope, N/V/D, dysuria. Review of Systems - Constitutional Constitutional: Present: as per HPI - EENMT Eyes: Absent: change in vision Balance: Absent: vertigo Mouth/Throat: Present: as per HPI - Cardiovascular Cardiovascular: Present: dyspnea on exertion, orthopnea. Absent: chest pain, palpitations, syncope, edema, heart murmur Rhythm: Absent: abnormal rhythm Vascular: Absent: pedal edema - Respiratory Respiratory: Present: as per HPI - Gastrointestinal Gastrointestinal: Present: as per HPI - Genitourinary Genitourinary: Present: as per HPI - Integumentary/Breasts Integumentary: Absent: rash - Neurological Neurological: Present: as per HPI - Endocrine Endocrine: Present: as [facility] Medical History Updates: HTN. DM. Peripheral neuropathy Surgical History: bilateral cataracts. nerve stimulator implant - Social History Smoking status: Former smoker Substance use type: does not use Alcohol intake frequency: does not drink Household members: spouse Current occupational status: retired Current residence: Apartment/Private Home Medications Home Medications Medication Instructions Recorded Confirmed Type Aspirin [Ecotrin] 81 mg PO DAILY 08/20/17 08/20/17 History Cyanocobalamin (Vitamin B-12) 1 tab PO DAILY 08/20/17 08/20/17 History [Vitamin B-12] Ergocalciferol (Vitamin D2) 1 cap PO WEEKLY 08/20/17 08/20/17 History [Vitamin D2] Finasteride [Proscar] 5 mg PO DAILY 08/20/17 08/20/17 History Insulin Lispro [Humalog] 1 dose SQ DAILY 08/20/17 08/20/17 History Labetalol [Normodyne] 100 mg PO BID #60 tab 08/22/17 Rx Lisinopril [Prinivil] 5 mg PO DAILY #30 tab 08/22/17 Rx Minocycline [Minocin] 100 mg PO BID #13 cap 08/22/17 Rx Allergies Allergy/AdvReac Type Severity Reaction Status Date / Time No Known Allergies Allergy Verified 08/20/17 13:12 Exam Vital signs: Temperature 98.5 F 08/21/17 07:00 Pulse Rate 48 L 08/21/17 09:15 Respiratory Rate 50 H 08/21/17 09:15 Blood Pressure 179/78 H 08/21/17 09:00 Pulse Oximetry 97 08/21/17 09:15 - Constitutional no acute distress, well nourished, cooperative - Routine HEENT Exam Head: Present: normocephalic ENT: Present: mucous membranes dry - Routine Neck Exam Absent: JVD, carotid bruit - Routine Chest/Breast/Axilla Exam Chest wall: Absent: tenderness, pacemaker - Routine Respiratory Exam Present: CTA bilaterally. Absent: rales, wheezes - Routine Cardiovascular Exam Present: no murmur, bradycardia, irregular rhythm - Routine Abdominal Exam Present: soft, non tender - Routine Extremities Exam Present: edema - Routine Skin Exam Present: intact, dry, warm - Routine Neurological Exam Present: alert, oriented X3 - Routine Psychiatric Exam Present: normal affect, normal thought process Results 08/22/17 04:26 08/22/17 04:26 - Imaging and Cardiology Imaging & Cardiology Narrative: Date of Exam: 08/21/17 Type of Exam(s): US echo doppler complete DATE OF PROCEDURE August 21, 2017 This is a two-dimensional echo with spectral Doppler, color-flow and M-mode. It was obtained in a patient with congestive heart failure and complete heart block. Left atrial dimension is normal. Left ventricular end-diastolic dimension is normal. Left ventricle wall thickness is mildly increased. LV systolic function is normal with ejection fraction of 68%. Right atrium is normal. Right ventricle is normal. Aortic root dimension is normal. Mitral valve annulus is calcified. Mitral valve leaflets are normal with mild mitral regurgitation. Aortic valve is a trileaflet structure with no stenosis. Mild aortic insufficiency is present. Tricuspid valve shows mild tricuspid regurgitation with moderate pulmonary hypertension with estimated pulmonary artery systolic pressure of 56. Pulmonary valve shows no pulmonary insufficiency. There is no pericardial effusion. IMPRESSION 1. Normal LV systolic function with ejection fraction of 68%. 2. Mild left ventricular hypertrophy. 3. Mitral annulus calcification with mild mitral regurgitation. 4. Aortic insufficiency. 5. Mild tricuspid regurgitation with moderate pulmonary hypertension with estimated pulmonary artery systolic pressure of 56. 08/22/17 09:28 EKG interpretations - EKG EKG shows: bradycardia - Blocks, axis, hypertrophy, ST abn AV and intraventricular conduction: complete (3) AV block Hospital Course This is a general summary of the patient's hospital course. For more details refer to the complete medical record. Time spent with patient: 25 - 35 minutes Resuscitation Status: Do Not Resuscitate Assessment and Plan - Attestation Attestation Narrative: 08/25/17 14:14 Recommendation After examining the patient I agree with the above assessment. I am involved in the formulation of the patient's plan of care. - Assessment and Plan (1) Complete heart block by electrocardiogram Status: Acute CCU for monitoring, Dopamine if symptomatic - Asymptomatic, HR low 40s - Intermittent SR with 1st degree AV Block - NPO after breakfast for PPM this afternoon (2) Congestive heart failure Status: Acute Acute diastolic CHF: EF 68% - Given Lasix 40mg X1 in ED - Diuresed 2575 - Denies dyspnea, able to lay flat, no JVD - BNP 3490 (3) Essential (primary) hypertension Status: Chronic Lisinopril 2.5mg po daily (4) CKD (chronic kidney disease) Status: Chronic Has not seen family support coordinator - Family Dr. monsalve [facility] retired. - Plans to see Dr. Camacho - Baseline Scr 1.8-1.9 per patient (5) Diabetes mellitus Status: Chronic 40+ year history of DM - Has insulin pump with continuous BG monitoring - Manages own bolus dose based on diet
[2017-08-21] MEDS ORDERED: PNEUMOCOCCAL 13 VACCINE 0.5ml INJECTION IM ONE (13:56)
[2017-08-21] MEDS: INSULIN LISPRO PO SCH (15:19)
[2017-08-21] MEDS: SALINE FLUSH 10ml SYRINGE IVF PRN (15:25)
[2017-08-21] MEDS ORDERED: MIDAZOLAM 2mg/2ml INJECTION ONE ×2 (15:47→16:23)
[2017-08-21] MEDS ORDERED: SALINE FLUSH 10ml SYRINGE ONE (15:47)
[2017-08-21] MEDS ORDERED: CEFAZOLIN 1 G INJECTION ONE (15:47)
[2017-08-21] MEDS ORDERED: FentaNYL 250 MCG/5 ML INJECTION ONE (15:47)
[2017-08-21] MEDS ORDERED: LIDOCAINE 1% (10mg/ml) 30ml SDV INJ ONE (15:48)
[2017-08-21] MEDS ORDERED: BACITRACIN 50,000 UNIT INJECTION ONE (15:48)
[2017-08-21] MEDS: CYANOCOBALAMIN (B-12) 500mcg TABLET PO SCH (16:30)
[2017-08-21] MEDS ORDERED: MAG-AL + SIM ORAL LIQUID 30ml PO PRN (16:54)
--- NOTE | 2017-08-21 17:21 | Echocardiogram ---
DATE OF PROCEDURE August 21, 2017 This is a two-dimensional echo with spectral Doppler, color-flow and M-mode. It was obtained in a patient with congestive heart failure and complete heart block. Left atrial dimension is normal. Left ventricular end-diastolic dimension is normal. Left ventricle wall thickness is mildly increased. LV systolic function is normal with ejection fraction of 68%. Right atrium is normal. Right ventricle is normal. Aortic root dimension is normal. Mitral valve annulus is calcified. Mitral valve leaflets are normal with mild mitral regurgitation. Aortic valve is a trileaflet structure with no stenosis. Mild aortic insufficiency is present. Tricuspid valve shows mild tricuspid regurgitation with moderate pulmonary hypertension with estimated pulmonary artery systolic pressure of 56. Pulmonary valve shows no pulmonary insufficiency. There is no pericardial effusion. IMPRESSION 1. Normal LV systolic function with ejection fraction of 68%. 2. Mild left ventricular hypertrophy. 3. Mitral annulus calcification with mild mitral regurgitation. 4. Aortic insufficiency. 5. Mild tricuspid regurgitation with moderate pulmonary hypertension with estimated pulmonary artery systolic pressure of 56. MTDD
[2017-08-21] MEDS ORDERED: LISINOPRIL 2.5 MG TABLET PO ONE (22:27)
[2017-08-22] MEDS: CEFAZOLIN 2 G in NS 100 ML IV SCH ×2 (00:14→08:21)
[2017-08-22] MEDS: HYDRALAZINE 20 MG/ML INJECTION IVP PRN ×2 (01:36→07:19)
[2017-08-22 04:19] VITALS: RESP 18
[2017-08-22] MEDS ORDERED: MINOCYCLINE 100 MG CAPSULE PO SCH ×2 (06:00→21:00)
[2017-08-22 07:14] VITALS: TEMP 98.9
[2017-08-22] MEDS: INSULIN LISPRO PO SCH (08:13)
[2017-08-22] MEDS: DOCUSATE SODIUM 100 MG CAPSULE PO SCH (08:13)
[2017-08-22] MEDS: ASPIRIN *EC* 81 MG TABLET PO SCH (08:21)
[2017-08-22] MEDS: FINASTERIDE 5 MG TABLET PO SCH (08:21)
[2017-08-22] MEDS: CYANOCOBALAMIN (B-12) 500mcg TABLET PO SCH (08:22)
[2017-08-22] MEDS ORDERED: LISINOPRIL 2.5 MG TABLET PO SCH (09:00)
[2017-08-22] MEDS ORDERED: LISINOPRIL 5 MG TABLET PO SCH (09:00)
--- NOTE | 2017-08-22 09:20 | XRay Report ---
Indication: ppm PROCEDURE: XR chest 1V: Encounter: Initial Comparison: None Findings: Left dual-lead cardiac pacemaker with right atrial and right ventricular leads. No evidence of lead fracture. No pneumothorax. Mild left basilar atelectasis. Right lung is clear. Heart size and mediastinal contours are within normal limits. Thoracic spinal stimulator leads. Overlying monitoring leads. Impression: Left pacemaker without visible pneumothorax. .
--- NOTE | 2017-08-22 09:34 | XRay Report ---
INDICATION: ppm PROCEDURE: CHEST 2-VIEWS UPRIGHT (PA & LAT) Encounter: Initial COMPARISON: August 21, 2017 FINDINGS: Stable appearance of the left pacemaker. No visible pneumothorax. Improved aeration of the left lung. Cardiomediastinal contours and pulmonary vascularity are stable. Chronic appearing lower thoracic wedge compression fracture. Impression: No pneumothorax. .
[2017-08-22 12:32] VITALS: BP 148/76; PULSE 98; O2SAT 94
[2017-08-22] MEDS ORDERED: LABETALOL 100 MG TABLET PO SCH (13:36)
--- NOTE | 2017-08-22 13:38 | Discharge Summary ---
<Roxie Linares - Last Filed: 08/23/17 11:18> Discharge Information Date of admission: 08/21/17 11:40 Anticipated date of discharge: 08/22/17 Attending Physician: Sumeet Dumont MD Primary care physician: Philippe Camacho MD - Discharge Diagnosis (1) Complete heart block by electrocardiogram Status: Acute (2) Congestive heart failure Status: Acute (3) Essential (primary) hypertension Status: Chronic (4) CKD (chronic kidney disease) Status: Chronic (5) Diabetes mellitus Status: Chronic Complete heart block, acute diastolic HF - Procedures Procedures: Dual chamber PPM insertion - Laboratory Labs: 08/22/17 04:26 08/22/17 04:26 History of Present Illness HPI: "Angel Luis" is a 72 year old male with a history of HTN and DM who presented to the ED with dyspnea at rest. He has had progressive dyspnea over the last week to 10 days with increased abdominal girth. Yesterday he walked to the car from [employer] and back and became so dyspneic he was unable to sing the hymns. He has no known cardiac history, he has a history of HTN (untreated due to syncopal events with concurrent hypoglycemia/hypotension), but no HLD. He has significant peripheral neuropathy, but no current/former AUTUMN. He reportedly has had some rhinitis and possibly a recent cold. Dr. Dumont was contacted for admission for CHF and he was put in observation on the Medical floor. Approximately 0330 this morning he was noted to be in complete heart block on telemetry and was transferred to CCU for close monitoring. He denies recent illness, fever, chills, cough, sore throat, palpitations, chest pain or pressure, dizziness, lightheadedness, syncope, N/V/D, dysuria. Hospital Course This is a general summary of the patient's hospital course. For more details refer to the complete medical record. Hospital course: 08/21/17 Complete heart block by electrocardiogram Current visit: Yes Status: Acute CCU for monitoring, Dopamine if symptomatic - Asymptomatic, HR low 40s - Intermittent SR with 1st degree AV Block - NPO after breakfast for PPM this afternoon Congestive heart failure Current visit: Yes Status: Acute Acute diastolic CHF: EF 68% - Given Lasix 40mg X1 in ED - Diuresed 257 - Denies dyspnea, able to lay flat, no JVD - BNP 3490 Essential (primary) hypertension Current visit: Yes Status: Chronic Lisinopril 2.5mg po daily CKD (chronic kidney disease) Current visit: Yes Status: Chronic Has not seen official court interpreter - Family in [facility] retired. - Plans to see Dr. Camahco - Baseline Scr 1.8-1.9 per patient DM: 40+ year history of DM - Has insulin pump with continuous BG monitoring - Manages own bolus dose based on diet 08/22/17 S/P dual chamber PPM - BP poor control, increased Lisinopril to 5mg - Ad Labetalol 100mg BID for additional BP control - Lab in 1 week to recheck renal and electrolytes Time spent with patient: 25 - 35 minutes Resuscitation Status: Do Not Resuscitate Exam Vital signs: Temperature 98.9 F 08/22/17 07:13 Pulse Rate 98 08/22/17 12:00 Respiratory Rate 18 08/22/17 07:13 Blood Pressure 148/76 H 08/22/17 12:00 Pulse Oximetry 94 08/22/17 12:00 - Constitutional no acute distress, well nourished, cooperative - Routine HEENT Exam Head: Present: normocephalic ENT: Present: mucous membranes moist - Routine Neck Exam Absent: JVD, carotid bruit - Routine Chest/Breast/Axilla Exam Chest wall: Present: tenderness, pacemaker - Routine Respiratory Exam Present: CTA bilaterally. Absent: rales, wheezes - Routine Cardiovascular Exam Present: RRR, no murmur - Routine Abdominal Exam Present: soft, non tender - Routine Skin Exam Present: intact, dry, warm - Routine Neurological Exam Present: alert, oriented X3 - Routine Psychiatric Exam Present: normal affect, normal thought process Results 08/22/17 04:26 08/22/17 04:26 CBC 08/22/17 Range/Units 04:26 WBC 6.2 (4.5-11.0) T/MM3 RBC 4.35 L (4.50-5.90) M/MM3 Hgb 13.9 (13.5-17.5) GM/DL Hct 41.2 (41-53) % Plt Count 164 (130-400) T/MM3 Neut # (Auto) 5.0 (1.8-7.7) T/MM3 Lymph # (Auto) 0.7 L (1-4.8) T/MM3 [place] # (Auto) 0.6 (0-0.8) T/MM3 Eos # (Auto) 0.0 (0-0.5) T/MM3 Baso # (Auto) 0.0 (0-0.2) T/MM3 Comprehensive Metabolic Panel 08/22/17 Range/Units 04:26 Sodium 142 (134-144) MEQ/L Potassium 4.4 (3.6-5) MEQ/L Chloride 109 H (98-107) MEQ/L Carbon Dioxide 21 L (22-30) MEQ/L BUN 40.0 H (9-20) MG/DL Creatinine 1.9 H (0.8-1.5) mg/dL Glucose 212 H (75-110) MG/DL Calcium 9.4 (8.4-10.2) MG/DL Intake and Output 08/21/17 08/22/17 08/22/17 22:59 06:59 14:59 Intake Total 540 / 540 600 / 600 340 / 340 Output Total 250 / 250 Balance 540 / 540 350 / 350 340 / 340 Intake: IV 100 / 100 100 / 100 Cefazolin 2 g In Ns 100 ml @ 100 / 100 100 / 100 200 mls/hr IV Q8HR [facility] Rx#: [id number] Oral 540 / 540 500 / 500 240 / 240 Output: Urine 250 / 250 Other: Urine Appearance Clear Clear Urine Color Yellow Bright Yellow Stool Color Brown Stool Consistency Formed Size of Bowel Movement Small # Voids 1 1 # Bowel Movements 1 Weight 213 lb 4 oz Patient Weight 08/23/17 06:59 Weight 213 lb 4 oz - Imaging and Cardiology Imaging & Cardiology Narrative: = = = = = = = = = = = = = = = = = = = = = = = = = = = = = = = = = = = = = = = = = = = = = = = = = = = = = = = = = = = Date of Exam: 08/21/17 Type of Exam(s): US echo doppler complete DATE OF PROCEDURE August 21, 2017 This is a two-dimensional echo with spectral Doppler, color-flow and M-mode. It was obtained in a patient with congestive heart failure and complete heart block. Left atrial dimension is normal. Left ventricular end-diastolic dimension is normal. Left ventricle wall thickness is mildly increased. LV systolic function is normal with ejection fraction of 68%. Right atrium is normal. Right ventricle is normal. Aortic root dimension is normal. Mitral valve annulus is calcified. Mitral valve leaflets are normal with mild mitral regurgitation. Aortic valve is a trileaflet structure with no stenosis. Mild aortic insufficiency is present. Tricuspid valve shows mild tricuspid regurgitation with moderate pulmonary hypertension with estimated pulmonary artery systolic pressure of 56. Pulmonary valve shows no pulmonary insufficiency. There is no pericardial effusion. IMPRESSION 1. Normal LV systolic function with ejection fraction of 68%. 2. Mild left ventricular hypertrophy. 3. Mitral annulus calcification with mild mitral regurgitation. 4. Aortic insufficiency. 5. Mild tricuspid regurgitation with moderate pulmonary hypertension with estimated pulmonary artery systolic pressure of 56. 08/23/17 11:21 08/23/17 11:21 Date of Exam: 08/21/17 Ordering Provider: Roxie Linares APRN Type of Exam(s): XR chest 1V Reason for Exam(s): ppm Indication: ppm PROCEDURE: XR chest 1V: Encounter: Initial Comparison: None Findings: Left dual-lead cardiac pacemaker with right atrial and right ventricular leads. No evidence of lead fracture. No pneumothorax. Mild left basilar atelectasis. Right lung is clear. Heart size and mediastinal contours are within normal limits. Thoracic spinal stimulator leads. Overlying monitoring leads. Impression: Left pacemaker without visible pneumothorax. . 08/23/17 11:21 Date of Exam: 08/22/17 Ordering Provider: Roxie Linares APRN Type of Exam(s): XR chest 2V Reason for Exam(s): ppm INDICATION: ppm PROCEDURE: CHEST 2-VIEWS UPRIGHT (PA & LAT) Encounter: Initial COMPARISON: August 21, 2017 FINDINGS: Stable appearance of the left pacemaker. No visible pneumothorax. Improved aeration of the left lung. Cardiomediastinal contours and pulmonary vascularity are stable. Chronic appearing lower thoracic wedge compression fracture. Impression: No pneumothorax. . Discharge Plan - Med Rec/Dispo Referrals/Follow Up: Sumeet Dumont MD [Physician] - 1 Week (incision check) Kat Instructions: [facility] Pacemaker, Heart Block (DC) Prescriptions: New Labetalol [Normodyne] 100 mg PO BID #60 tab Lisinopril [Prinivil] 5 mg PO DAILY #30 tab Minocycline [Minocin] 100 mg PO BID #13 cap Continue Insulin Lispro [Humalog] 1 dose SQ DAILY Aspirin [Ecotrin] 81 mg PO DAILY Finasteride [Proscar] 5 mg PO DAILY Ergocalciferol (Vitamin D2) [Vitamin D2] 1 cap PO WEEKLY Cyanocobalamin (Vitamin B-12) [Vitamin B-12] 1 tab PO DAILY - Disposition 01 Discharged Home, Self-Care - Dismissal Complete Discharge Instructions are:: Complete <Sumeet Dumont - Last Filed: 08/28/17 15:58> Discharge Information Date of admission: 08/21/17 11:40 Attending Physician: Sumeet Dumont MD Primary care physician: Philippe Camacho MD - Discharge Diagnosis (1) Complete heart block by electrocardiogram Status: Acute (2) Congestive heart failure Status: Acute (3) Essential (primary) hypertension Status: Chronic (4) CKD (chronic kidney disease) Status: Chronic (5) Diabetes mellitus Status: Chronic - Laboratory Labs: 08/22/17 04:26 08/22/17 04:26 Hospital Course This is a general summary of the patient's hospital course. For more details refer to the complete medical record. Exam Vital signs: Temperature 98.9 F 08/22/17 07:13 Pulse Rate 98 08/22/17 12:00 Respiratory Rate 18 08/22/17 07:13 Blood Pressure 148/76 H 08/22/17 12:00 Pulse Oximetry 94 08/22/17 12:00 Results 08/22/17 04:26 08/22/17 04:26 Attestation Narriative - Attestation Attestation Narrative: 08/28/17 15:58 Recommendation After examining the patient I agree with the above assessment. I am involved in the formulation of the patient's plan of care.
== END 2017-08-22 15:32 | disposition home or self-care (01) | DRG 242 ==
LOC: MED 12:40 → ED 12:40 → MED 15:55 → CCU 08-21 03:26 → SRG 08-21 16:11
PROVIDERS: ADMIT Internal Medicine Cardiovascular Disease; ATTEND Internal Medicine Cardiovascular Disease